=== PATIENT | male | born 1995 | race Caucasian/White ===

== ENCOUNTER 2018-02-25 22:29 | Inpatient (IN) | payer SELFPAY ==
[~2018-02-25] VITALS: Ht 175.3 cm; Wt 69.9 kg
[2018-02-25] MEDS ORDERED: NS IV 1000 ML 1,000 ML IV ONE (22:56)
[2018-02-25 23:15] LABS: BASOPHILS % (AUTO) 0 % (0-10); EOSINOPHILS # (AUTO) 0.1 10^3/uL (0.0-0.3); EOSINOPHILS % (AUTO) 1 % (0-10); HEMATOCRIT 42 % (40-54); HEMOGLOBIN 15.3 G/DL (13.3-17.7); LYMPHOCYTES # (AUTO) 1.1 X 10^3 (1.0-4.0); LYMPHOCYTES % (AUTO) 15 % (12-44); MEAN CORPUSCULAR HEMOGLOBIN 32 PG (25-34); MEAN CORPUSCULAR HGB CONC 37 G/DL (32-36); MEAN CORPUSCULAR VOLUME 87 FL (80-99); MEAN PLATELET VOLUME 11.1 FL (7.4-10.4); MONOCYTES # (AUTO) 0.4 X 10^3 (0.0-1.0); MONOCYTES % (AUTO) 6 % (0-12); NEUTROPHILS # (AUTO) 5.2 X 10^3 (1.8-7.8); NEUTROPHILS % (AUTO) 77 % (42-75); PLATELET COUNT 140 10^3/uL (130-400); RED BLOOD COUNT 4.81 10^6/uL (4.35-5.85); RED CELL DISTRIBUTION WIDTH 13.3 % (10.0-14.5); WHITE BLOOD COUNT 6.8 10^3/uL (4.3-11.0)
[2018-02-25] MEDS ORDERED: PIPERACILLIN SODIUM/TAZOBACTAM 4.5 GM in NS (IVPB) 100 ML IV ONE (23:15)
[2018-02-25] MEDS ORDERED: VANCOMYCIN INJECTION 1,000 MG in NS (IVPB) 250 ML IV ONE (23:15)
[2018-02-25 23:31] LABS: BUN/CREATININE RATIO 18; CALCIUM 9.4 MG/DL (8.5-10.1); CARBON DIOXIDE 25 MMOL/L (21-32); CHLORIDE 102 MMOL/L (98-107); CREATININE SERUM 0.95 MG/DL (0.60-1.30); GFR ESTIMATED > 60; GLUCOSE 89 MG/DL (70-105); POTASSIUM 3.4 MMOL/L (3.6-5.0); SODIUM 136 MMOL/L (135-145)
[2018-02-26] VITALS (7 sets, daily range): BP systolic 94–128; BP diastolic 56–76
--- NOTE | 2018-02-26 00:04 | ED General ---
General Chief Complaint: Skin/Wound Problems Stated Complaint: L HAND MIDDLE FINGER POSS INFECT/HEADACHE/CHILLS Nursing Triage Note: PT AMB TO ROOM #7 W/O DIFFICULTY. A&OX4. CO HEADAHCE AND CHILLS. PT REPORTS HE SMASHED HIS FINGER AT WORK ON 02/18/18 INBETWEEN A 50LB BAG OF POTATOES AND A PIECE OF METAL. PT REPORTS SINCE 02/23/18 LT MIDDLE FINGER HAS TURNED PALE IN COLOR AND HAS BEEN DRAINING "WHITE/GREEN PUS OUT OF MY NAIL BED." PT REPORTS AFTER WORK ON THIS DAY HE BEGAN TO HAVE CHILLS,LORENZ, AND BODY ACHES. PT NOTED TO BE FEBRILE. PT REPORTS DULL,HEAVY PAIN TO LT MIDDLE FINGER. Nursing Sepsis Screen: Possible Sepsis Risk Source of Information: Patient Exam Limitations: No Limitations History of Present Illness Date Seen by Provider: Feb 25, 2018 Time Seen by Provider: 22:32 Initial Comments This 22-year-old gentleman presents to the emergency room with complaints of pain in the distal left middle finger. He smashed it between a 50 pound bag of potatoes and a metal object. About 2 days ago he developed a purulent accumulation underneath the nailbed. He had some drainage of purulent foul- smelling material from the nail edge. Today he developed fever, headache, chills, and myalgia. Allergies and Home Medications Allergies Coded Allergies: ketorolac (Verified Allergy, Mild, 02/26/18) Causes itching. vancomycin (Verified Allergy, Mild, 02/26/18) Itching Patient Home Medication List Home Medication List Reviewed: Yes Review of Systems Review of Systems Constitutional: see HPI EENTM: no symptoms reported Respiratory: no symptoms reported Cardiovascular: no symptoms reported Gastrointestinal: no symptoms reported Genitourinary: no symptoms reported Musculoskeletal: see HPI Skin: see HPI Psychiatric/Neurological: See HPI Hematologic/Lymphatic: No Symptoms Reported Immunological/Allergic: no symptoms reported Past Tfrocla-Nbdjkl-Tsxoxy Hx Patient Social History Alcohol Use: Rarely Uses Recreational Drug Use: No Smoking Status: Current Everyday Smoker Type Used: Cigarettes 2nd Hand Smoke Exposure: Yes Recent Foreign Travel: No Contact w/Someone Who Travel: No Recent Infectious Disease Expo: No Recent Hopitalizations: No Physical Abuse: No Sexual Abuse: No Seasonal Allergies Seasonal Allergies: Yes Past Medical History Surgeries: Yes Orthopedic Respiratory: No Cardiac: No Neurological: No Genitourinary: No Gastrointestinal: No Musculoskeletal: No Endocrine: No HEENT: No Cancer: No Psychosocial: No Integumentary: No Blood Disorders: No Physical Exam-Suspected Sepsis Physical Exam Vital Signs Vital Signs - First Documented 02/25/18 22:51 Temp 100.9 Pulse 103 Resp 16 B/P (MAP) 116/92 (100) Pulse Ox 98 O2 Delivery Room Air Capillary Refill : Less Than 3 Seconds Blood Pressure Mean: 100 Height, Weight, BMI Height: 5'9.00" Weight: 145lbs. oz. [id number]; BMI Method:Stated General Appearance: No Apparent Distress, WD/WN, Other (mildly ill appearing) HEENT: PERRL/EOMI, Normal ENT Inspection Neck: Normal Inspection Respiratory: Lungs Clear, Normal Breath Sounds, No Accessory Muscle Use, No Respiratory Distress Cardiovascular: No Edema, No Murmur, Tachycardia (regular) Gastrointestinal: Normal Bowel Sounds, Non Tender, Soft Extremity: Other (the third finger on the left hand is swollen about the distal phalanx. There is purulent material accumulated beneath the nail bed giving it a pale appearance. Capillary refill is intact. He retains most of the range of motion in that finger. The distal phalanx is very tender.) Neurologic/Psychiatric: Alert, Oriented x3, No Motor/Sensory Deficits, Normal Mood/Affect, rib matcher and fitter II-XII Norm as Tested Skin: normal color, warm/dry, other (see extremity exam) Focused Exam Lactate Level 02/25/18 23:00: Lactic Acid Level 0.65 Lactic Acid Level Progress/Results/Core Measures Suspected Sepsis Recent Fever Within 48 Hours: Yes Infection Criteria Present: Suspected New Infection New/Unexplained Altered Menta: No Sepsis Screen: Possible Sepsis Risk SIRS Temperature:100.9 Pulse: 103 Respiratory Rate: 16 Laboratory Tests 02/25/18 23:00: White Blood Count 6.8 02/26/18 04:10: White Blood Count 7.1 Blood Pressure 116 /92 Mean: 100 02/25/18 23:00: Lactic Acid Level 0.65 Laboratory Tests 02/25/18 23:00: Creatinine 0.95, Platelet Count 140 02/26/18 04:10: Creatinine 0.89, Platelet Count 119L Results/Orders Lab Results Laboratory Tests Test 02/25/18 23:00 02/26/18 04:10 Range/Units White Blood Count 6.8 7.1 4.3-11.0 10^3/uL Red Blood Count 4.81 4.54 4.35-5.85 10^6/uL Hemoglobin 15.3 14.2 13.3-17.7 G/DL Hematocrit 42 40 40-54 % Mean Corpuscular Volume 87 89 80-99 FL Mean Corpuscular Hemoglobin 32 31 25-34 PG Mean Corpuscular Hemoglobin Concent 37 H 35 32-36 G/DL Red Cell Distribution Width 13.3 13.4 10.0-14.5 % Platelet Count 140 119 L 130-400 10^3/uL Mean Platelet Volume 11.1 H 11.3 H 7.4-10.4 FL Neutrophils (%) (Auto) 77 H 83 H 42-75 % Lymphocytes (%) (Auto) 15 9 L 12-44 % Monocytes (%) (Auto) 6 8 0-12 % Eosinophils (%) (Auto) 1 1 0-10 % Basophils (%) (Auto) 0 0 0-10 % Neutrophils # (Auto) 5.2 5.9 1.8-7.8 X 10^3 Lymphocytes # (Auto) 1.1 0.6 L 1.0-4.0 X 10^3 Monocytes # (Auto) 0.4 0.5 0.0-1.0 X 10^3 Eosinophils # (Auto) 0.1 0.1 0.0-0.3 10^3/uL Basophils # (Auto) 0.0 0.0 0.0-0.1 10^3/uL Sodium Level 136 139 135-145 MMOL/L Potassium Level 3.4 L 3.6 3.6-5.0 MMOL/L Chloride Level 102 108 H 98-107 MMOL/L Carbon Dioxide Level 25 22 21-32 MMOL/L Anion Gap 9 9 5-14 MMOL/L Blood Urea Nitrogen 17 13 7-18 MG/DL Creatinine 0.95 0.89 0.60-1.30 MG/DL Estimat Glomerular Filtration Rate > 60 > 60 BUN/Creatinine Ratio 18 15 Glucose Level 89 87 70-105 MG/DL Lactic Acid Level 0.65 0.50-2.00 MMOL/L Calcium Level 9.4 8.8 8.5-10.1 MG/DL C-Reactive Protein High Sensitivity 0.18 0.00-0.50 MG/DL My Orders Orders - JAMAAL ODNG MD Basic Metabolic Panel (02/25/18 22:32) Cbc With Automated Diff (02/25/18 22:32) Hs C Reactive Protein (02/25/18 22:32) Saline Lock/Iv-Start (02/25/18 22:32) Blood Culture (02/25/18 22:56) Lactic Acid Analyzer (02/25/18 22:56) Wound Culture (02/25/18 22:56) Saline Lock/Iv-Start (02/25/18 22:56) Ns Iv 1000 Ml (Sodium Chloride 0.9%) (02/25/18 22:56) Finger(S) (02/25/18 22:56) Piperacillin Sodium/Tazobactam (Zosyn Vi (02/25/18 23:15) Vancomycin Injection (Vancomycin Injecti (02/25/18 23:15) Ketorolac Injection (Toradol Injection) (02/26/18 00:15) Ondansetron Injection (Zofran Injectio (02/26/18 00:15) Diphenhydramine Injection (Benadryl Inje (02/26/18 01:00) Clindamycin 900 Mg/50 Ml Ivpb (Cleocin P (02/26/18 01:00) Medications Given in ED Current Medications Medications Dose Ordered Sig/Elaina Route Start Time Stop Time Status Last Admin Dose Admin Clindamycin Phosphate/Dextrose 50 ml @ 100 mls/hr ONCE ONCE IV 02/26/18 01:00 02/26/18 01:29 DC 02/26/18 01:19 100 MLS/HR Diphenhydramine HCl 25 mg ONCE ONCE IVP 02/26/18 01:00 02/26/18 01:01 DC 02/26/18 01:03 25 MG Ketorolac Tromethamine 15 mg ONCE ONCE IVP 02/26/18 00:15 02/26/18 00:17 DC 02/26/18 00:27 15 MG Ondansetron HCl 4 mg ONCE ONCE IVP 02/26/18 00:15 02/26/18 00:17 DC 02/26/18 00:28 4 MG Piperacillin Sod/ Tazobactam Sod 4.5 gm/Sodium Chloride 100 ml @ 200 mls/hr ONCE ONCE IV 02/25/18 23:15 02/25/18 23:44 DC 02/25/18 23:43 200 MLS/HR Sodium Chloride 1,000 ml @ 0 mls/hr Q0M ONCE IV 02/25/18 22:56 02/25/18 22:58 DC 02/25/18 23:05 0 MLS/HR Vancomycin HCl 1000 mg/Sodium Chloride 250 ml @ 250 mls/hr ONCE ONCE IV 02/25/18 23:15 02/26/18 00:14 DC 02/26/18 00:15 250 MLS/HR Vital Signs/I&O 02/25/18 02/26/18 02/26/18 02/26/18 22:51 01:50 01:50 01:50 Temp 100.9 98.5 102.0 98.5 Pulse 103 98 101 98 Resp 16 17 16 17 B/P (MAP) 116/92 (100) 108/59 119/57 (77) 108/59 Pulse Ox 98 99 97 99 O2 Delivery Room Air Room Air Room Air Room Air 02/26/18 02/26/18 02/26/18 02/26/18 02:05 02:40 02:40 03:04 Temp 102.0 100.2 100.2 Pulse Ox 97 O2 Delivery Room Air 02/26/18 04:43 Temp 98.3 Pulse 77 Resp 16 B/P (MAP) 110/60 (77) Pulse Ox 97 O2 Delivery Room Air Capillary Refill : Less Than 3 Seconds Blood Pressure Mean: 100 Progress Note #1: Progress Note Septic workup was pursued. A 16-gauge hypodermic needle was used to drill through the nail and alleviate some of the purulent accumulation. A small amount of drainage was expressed through the hole. This was cultured. I consulted with Dr. Valladares to discuss appropriate management of drainage of the purulent material. We discussed a digital block with incision of the nail lengthwise versus drilling additional holes. He advised drilling additional holes for the time being and monitoring progression. Vancomycin and Zosyn were ordered for initial therapy. Progress Note #2: Progress Note Patient received a liter of IV fluid. Zosyn was infused. Vancomycin will be administered as well. Progress Note #3: Time: 01:16 Progress Note Patient developed intense itching after receiving Toradol and while vancomycin infusion was in progress. Vancomycin was stopped after approximately 400 mg were infused, and Benadryl was given. Itching immediately stopped. Toradol and vancomycin were added to his allergy list. Clindamycin was ordered as a substitute. Diagnostic Imaging Diagonstic Imaging: Xray Plain Films/CT/US/NM/MRI: hand Comments Finger x-rays viewed by me. Report not yet available. No acute bony abnormalities were appreciated. Departure Communication (Admissions) Time/Spoke to Admitting Phy: 23:55 Dr. Ladd Impression Primary Impression: Sepsis Qualified Codes: A41.9 - Sepsis, unspecified organism Additional Impressions: Subungual abscess Crush injury to finger Qualified Codes: S67.10XA - Crushing injury of unspecified finger(s), initial encounter Drug reaction Qualified Codes: T50.905A - Adverse effect of unspecified drugs, medicaments and biological substances, initial encounter Disposition: ADMITTED INPATIENT Condition: Improved Admissions Decision to Admit Reason: Admit from ER (General) Decision to Admit/Date: Feb 26, 2018 Time/Decision to Admit Time: 22:45 Departure-Patient Inst. Referrals: [facility] (PCP/Family) Primary Care Physician JAMAAL DONG MD Feb 26, 2018 00:04
[2018-02-26] MEDS ORDERED: ONDANSETRON 4 MG/2 ML (SDV) Z0FRAN IVP ONE (00:15)
[2018-02-26] MEDS ORDERED: KETOROLAC 30 MG/ML VIAL IVP ONE (00:15)
[2018-02-26] MEDS ORDERED: CLINDAMYCIN 900 MG/50 ML IVPB 50 ML IV ONE (01:00)
[2018-02-26] MEDS ORDERED: diphenhydrAMINE 50 MG/ML INJ (BENADRYL) IVP ONE (01:00)
[2018-02-26] MEDS ORDERED: ACETAMINOPHEN 500 MG TAB (TYLENOL) ONE (01:55)
[2018-02-26] MEDS ORDERED: NS IV 1000 ML 1,000 ML ONE (01:57)
[2018-02-26] MEDS ORDERED: CATHETER FLUSH 10 ML SYR IV PRN (03:45)
[2018-02-26] MEDS ORDERED: ACETAMINOPHEN 500 MG TAB (TYLENOL) PO PRN (03:45)
[2018-02-26] MEDS ORDERED: IBUPROFEN 600 MG (MOTRIN) TAB PO PRN (03:45)
[2018-02-26] MEDS: NS IV 1000 ML 1,000 ML IV SCH ×3 (04:07→23:38)
[2018-02-26] MEDS: CATHETER FLUSH 10 ML SYR IV SCH ×3 (04:42→22:02)
[2018-02-26 04:53] LABS: BASOPHILS % (AUTO) 0 % (0-10); EOSINOPHILS # (AUTO) 0.1 10^3/uL (0.0-0.3); EOSINOPHILS % (AUTO) 1 % (0-10); HEMATOCRIT 40 % (40-54); HEMOGLOBIN 14.2 G/DL (13.3-17.7); LYMPHOCYTES # (AUTO) 0.6 X 10^3 (1.0-4.0); LYMPHOCYTES % (AUTO) 9 % (12-44); MEAN CORPUSCULAR HEMOGLOBIN 31 PG (25-34); MEAN CORPUSCULAR HGB CONC 35 G/DL (32-36); MEAN CORPUSCULAR VOLUME 89 FL (80-99); MEAN PLATELET VOLUME 11.3 FL (7.4-10.4); MONOCYTES # (AUTO) 0.5 X 10^3 (0.0-1.0); MONOCYTES % (AUTO) 8 % (0-12); NEUTROPHILS # (AUTO) 5.9 X 10^3 (1.8-7.8); NEUTROPHILS % (AUTO) 83 % (42-75); PLATELET COUNT 119 10^3/uL (130-400); RED BLOOD COUNT 4.54 10^6/uL (4.35-5.85); RED CELL DISTRIBUTION WIDTH 13.4 % (10.0-14.5); WHITE BLOOD COUNT 7.1 10^3/uL (4.3-11.0)
[2018-02-26 05:06] LABS: BUN/CREATININE RATIO 15; CALCIUM 8.8 MG/DL (8.5-10.1); CARBON DIOXIDE 22 MMOL/L (21-32); CHLORIDE 108 MMOL/L (98-107); CREATININE SERUM 0.89 MG/DL (0.60-1.30); GFR ESTIMATED > 60; GLUCOSE 87 MG/DL (70-105); POTASSIUM 3.6 MMOL/L (3.6-5.0); SODIUM 139 MMOL/L (135-145)
[2018-02-26] MEDS: PIPERACILLIN/TAZO 4.5 GM/NS 100 ML IV SCH ×6 (06:05→22:02)
--- NOTE | 2018-02-26 06:45 | Diagnostic Imaging Report ---
INDICATION: Left middle finger injury 3 views of the left middle finger show no fracture, dislocation or other acute abnormalities. IMPRESSION: Negative left middle finger. Dictated by: Dictated on workstation # [id number]
--- NOTE | 2018-02-26 08:51 | History & Physicial ([facility]) ---
HPI History of Present Illness: 22 year old male who presented to ED last night with report that on 02/18 he smashed his left middle finger between heavy bag of potatoes and metal object. Since 02/23 his nail bed of left middle finger has been pale and draining purulent material. Last night before presenting to ED the patient began experiencing headache, body aches, chills, and fever so came to the ED. He had a small hole made and purulent material was expressed. He was noted to have systolic blood pressure in the 90's and was given a fluid bolus. Labs were unremarkable. A few additional holes were placed for further relief of pressure and drainage of subuncal abscess by ED physician. The patient was started on Zosyn and Vanc; the vanc was given with toradol and the patient experienced significant itching. The vanc was stopped and both it and toradol were listed as allergies. The patient had a temp of 102 overnight, which has not returned. At the time of exam the patient reports that he is feeling well, has minimal pain. Clinic records were reviewed, and no evidence of the patient was found; he reported that he went once as a child while in foster care, but hasn't seen a doctor in years because he doesn't like to go to doctors. Source: patient, RN/MD, RN notes reviewed Exam Limitations: no limitations Date seen by provider: Feb 26, 2018 Time Seen by Provider: 15:10 Attending Physician Margoth Ladd DO PCP NO PCP Consult Date of Admission Feb 26, 2018 at 01:16 Home Medications Home Medications Reviewed patient Home Medication Reconciliation performed by pharmacy medication reconciliations fire range technician and/or nursing. Patients Allergies have been reviewed. Allergies Coded Allergies: ketorolac (Verified Allergy, Mild, 02/26/18) Causes itching. vancomycin (Verified Allergy, Mild, 02/26/18) Itching TMK-Hmowkm-Mrzevn Hx Patient Social History Marrital Status: cohabiting, domestic partnership Number of Children: 0 Number of living children: 0 Living Status: lives with significant other Employed/Student: employed Alcohol Use: Denies Use Recreational Drug Use: No Smoking Status: Current Everyday Smoker Type Used: Cigarettes 2nd Hand Smoke Exposure: Yes Recent Foreign Travel: No Contact w/other who traveled: No Recent Hopitalizations: No Recent Infectious Disease Expo: No Physical Abuse Screen: No Sexual Abuse: No Immunizations Up To Date Tetanus Booster (TDap): More than 5yrs Past Medical History Tobacco Abuse Past Surgical Hx -left elbow surgery ~age 7 -right hand tendon repair ~age 20 Family Medical History Significant Family History: Psychiatric Problems Review of Systems ([facility]) Constitutional: see HPI, chills, fever EENTM: no symptoms reported Respiratory: no symptoms reported Cardiovascular: no symptoms reported Gastrointestinal: no symptoms reported Genitourinary: no symptoms reported Musculoskeletal: no symptoms reported Skin: see HPI Psychiatric/Neurological: No Symptoms Reported Reviewed Test Results Reviewed Test Results Lab Microbiology 02/25/18 Blood Culture - Preliminary, Resulted No growth 02/25/18 Blood Culture - Preliminary, Resulted No growth 02/25/18 Gram Stain - Final, Resulted 02/25/18 Wound Culture - Preliminary, Resulted Sent To On License Of [facility] See Comments Laboratory Tests Test 02/25/18 23:00 02/26/18 04:10 Range/Units White Blood Count 6.8 7.1 4.3-11.0 10^3/uL Red Blood Count 4.81 4.54 4.35-5.85 10^6/uL Hemoglobin 15.3 14.2 13.3-17.7 G/DL Hematocrit 42 40 40-54 % Mean Corpuscular Volume 87 89 80-99 FL Mean Corpuscular Hemoglobin 32 31 25-34 PG Mean Corpuscular Hemoglobin Concent 37 H 35 32-36 G/DL Red Cell Distribution Width 13.3 13.4 10.0-14.5 % Platelet Count 140 119 L 130-400 10^3/uL Mean Platelet Volume 11.1 H 11.3 H 7.4-10.4 FL Neutrophils (%) (Auto) 77 H 83 H 42-75 % Lymphocytes (%) (Auto) 15 9 L 12-44 % Monocytes (%) (Auto) 6 8 0-12 % Eosinophils (%) (Auto) 1 1 0-10 % Basophils (%) (Auto) 0 0 0-10 % Neutrophils # (Auto) 5.2 5.9 1.8-7.8 X 10^3 Lymphocytes # (Auto) 1.1 0.6 L 1.0-4.0 X 10^3 Monocytes # (Auto) 0.4 0.5 0.0-1.0 X 10^3 Eosinophils # (Auto) 0.1 0.1 0.0-0.3 10^3/uL Basophils # (Auto) 0.0 0.0 0.0-0.1 10^3/uL Sodium Level 136 139 135-145 MMOL/L Potassium Level 3.4 L 3.6 3.6-5.0 MMOL/L Chloride Level 102 108 H 98-107 MMOL/L Carbon Dioxide Level 25 22 21-32 MMOL/L Anion Gap 9 9 5-14 MMOL/L Blood Urea Nitrogen 17 13 7-18 MG/DL Creatinine 0.95 0.89 0.60-1.30 MG/DL Estimat Glomerular Filtration Rate > 60 > 60 BUN/Creatinine Ratio 18 15 Glucose Level 89 87 70-105 MG/DL Lactic Acid Level 0.65 0.50-2.00 MMOL/L Calcium Level 9.4 8.8 8.5-10.1 MG/DL C-Reactive Protein High Sensitivity 0.18 0.00-0.50 MG/DL Radiology Left hand series - no acute process Physical Exam-([facility]) Physical Exam Vital Signs VS - Last 72 Hours, by Label 02/25/18 02/26/18 02/26/18 02/26/18 22:51 01:50 01:50 01:50 Temp 100.9 98.5 102.0 98.5 Pulse 103 98 101 98 Resp 16 17 16 17 B/P (MAP) 116/92 (100) 108/59 119/57 (77) 108/59 Pulse Ox 98 99 97 99 O2 Delivery Room Air Room Air Room Air Room Air 02/26/18 02/26/18 02/26/18 02/26/18 02:05 02:40 02:40 03:04 Temp 102.0 100.2 100.2 Pulse Ox 97 O2 Delivery Room Air 02/26/18 02/26/18 02/26/18 02/26/18 04:43 08:00 12:00 16:00 Temp 98.3 99.0 100.2 100.5 Pulse 77 77 71 71 Resp 16 20 20 18 B/P (MAP) 110/60 (77) 94/56 (69) 116/72 (87) 98/61 (73) Pulse Ox 97 98 98 97 O2 Delivery Room Air Room Air Room Air Room Air 02/26/18 02/26/18 02/26/18 16:36 17:06 19:15 Temp 100.5 98.4 98.8 Pulse 64 Resp 20 B/P (MAP) 115/59 (77) Pulse Ox 99 O2 Delivery Room Air Capillary Refill : Less Than 3 Seconds General Appearance: WD/WN, no apparent distress Eyes: Bilateral Eye Normal Inspection, Bilateral Eye EOMI HEENT: normal ENT inspection; No scleral icterus (R), No scleral icterus (L), No photophobia Neck: non-tender, full range of motion, supple, normal inspection Respiratory: chest non-tender, lungs clear, normal breath sounds, no respiratory distress Cardiovascular: normal peripheral pulses, regular rate, rhythm, no edema, no gallop, no JVD, no murmur Peripheral Pulses: 2+ Dorsalis Pedis (R), 2+ Left Dors-Pedis (L), 2+ Radial Pulses (R), 2+ Radial Pulses (L) Gastrointestinal: normal bowel sounds, non tender, soft, no organomegaly, no pulsatile mass Rectal: deferred Back: normal inspection, no CVA tenderness, no vertebral tenderness Extremities: normal range of motion, non-tender, no pedal edema, no calf tenderness, normal capillary refill, other (left middle fingernail with multiple holes, no active drainage) Neurologic/Psychiatric: building manager II-XII nml as tested, no motor/sensory deficits, alert, normal mood/affect, oriented x 3 Skin: normal color, warm/dry Assessment/Plan Assessment/Plan Admission Dx Subuncal Abscess Fever Tobacco Abuse Admission Status: Inpatient Order (span 2 midnights) Reason for Inpatient Admission: IV abx Assessment & Plan Subuncal Abscess Fever Tobacco Abuse -pt with febrile episode at ~0200 to 102 -continue IV abx -pt reports that left middle finger drained large amount of material overnight, but is no longer draining and not very painful -will recheck labs in AM -if remains afebrile until AM, will discharge on oral abx -suspect that low BP reading pt had in ED is not necessarily abnormal for patient, as he is slender and very fit -update tetanus before discharge as pt did smash finger against metal object Anticipate that patient will be ready for discharge in the morning on oral abx. Clinical Quality Measures DVT/VTE Risk/Contraindication: Risk Factor Score Per Nursin RFS Level Per Nursing on Admit: 4+=Very High Copy Copies To 1: [facility]/MARGOTH WHEELER DO Feb 26, 2018 08:51
[2018-02-26] MEDS: CLINDAMYCIN 900 MG/50 ML IVPB 50 ML IV SCH ×3 (11:16→23:50)
[2018-02-26] MEDS ORDERED: HYDROcodone/APAP 5 MG/325 MG (LORTAB) TAB PO PRN (17:00)
[2018-02-27 03:17] VITALS: BP 101/63
[2018-02-27] MEDS: CATHETER FLUSH 10 ML SYR IV SCH (05:13)
[2018-02-27] MEDS: PIPERACILLIN/TAZO 4.5 GM/NS 100 ML IV SCH ×2 (05:13)
[2018-02-27 06:24] LABS: BASOPHILS % (AUTO) 0 % (0-10); EOSINOPHILS # (AUTO) 0.2 10^3/uL (0.0-0.3); EOSINOPHILS % (AUTO) 5 % (0-10); HEMATOCRIT 40 % (40-54); HEMOGLOBIN 13.9 G/DL (13.3-17.7); LYMPHOCYTES # (AUTO) 1.6 X 10^3 (1.0-4.0); LYMPHOCYTES % (AUTO) 51 % (12-44); MEAN CORPUSCULAR HEMOGLOBIN 32 PG (25-34); MEAN CORPUSCULAR HGB CONC 35 G/DL (32-36); MEAN CORPUSCULAR VOLUME 91 FL (80-99); MEAN PLATELET VOLUME 11.9 FL (7.4-10.4); MONOCYTES # (AUTO) 0.7 X 10^3 (0.0-1.0); MONOCYTES % (AUTO) 22 % (0-12); NEUTROPHILS # (AUTO) 0.7 X 10^3 (1.8-7.8); NEUTROPHILS % (AUTO) 23 % (42-75); PLATELET COUNT 118 10^3/uL (130-400); RED BLOOD COUNT 4.39 10^6/uL (4.35-5.85); RED CELL DISTRIBUTION WIDTH 13.5 % (10.0-14.5); WHITE BLOOD COUNT 3.2 10^3/uL (4.3-11.0)
[2018-02-27 08:00] VITALS: BP 93/59
[2018-02-27] MEDS: NS IV 1000 ML 1,000 ML IV SCH (09:01)
[2018-02-27] MEDS: CLINDAMYCIN 900 MG/50 ML IVPB 50 ML IV SCH (09:04)
[2018-02-27 12:00] VITALS: BP 115/54
[2018-02-27] MEDS ORDERED: TETANUS,DIPTH,PERTUSS P/F (BOOSTRIX) 0.5 ML VIAL IM ONE (12:00)
--- NOTE | 2018-02-27 13:51 | Discharge Summary ---
Diagnosis/Chief Complaint Date of Admission Feb 26, 2018 at 01:16 Date of Discharge 02/27/18 Admission Diagnosis Admission Diagnosis Subuncal Abscess Fever Tobacco Abuse Discharge Diagnosis Subuncal Abscess Fever Tobacco Abuse -pt with febrile episode at ~0200 to 102 -continue IV abx -pt reports that left middle finger drained large amount of material overnight, but is no longer draining and not very painful -will recheck labs in AM -if remains afebrile until AM, will discharge on oral abx -suspect that low BP reading pt had in ED is not necessarily abnormal for patient, as he is slender and very fit -update tetanus before discharge as pt did smash finger against metal object 02/27 -pt with Tmax 100.5 yesterday mid-day, no fevers since -tolerating diet, no nausea or vomiting -pain well controlled -BP at baseline for patient -left middle finger continues to have intermittent draining, but much less than previous -pt feels ready for discharge and is stable from clinical standpoint -will DC with oral clindamycin, augmentin x5 days for a total of 7 days abx; # 12 tabs Vaughn 5/325 PRN severe pain -Tdap prior to discharge -follow up in clinic to establish care as patient has not been seen by a physician since he was younger; no records of him as a [facility] patient since 2009 Chief Complaint/HPI Chief Complaint/HPI 22 year old male who presented to ED last night with report that on 02/18 he smashed his left middle finger between heavy bag of potatoes and metal object. Since 02/23 his nail bed of left middle finger has been pale and draining purulent material. Last night before presenting to ED the patient began experiencing headache, body aches, chills, and fever so came to the ED. He had a small hole made and purulent material was expressed. He was noted to have systolic blood pressure in the 90's and was given a fluid bolus. Labs were unremarkable. A few additional holes were placed for further relief of pressure and drainage of subuncal abscess by ED physician. The patient was started on Zosyn and Vanc; the vanc was given with toradol and the patient experienced significant itching. The vanc was stopped and both it and toradol were listed as allergies. The patient had a temp of 102 overnight, which has not returned. At the time of exam the patient reports that he is feeling well, has minimal pain. Clinic records were reviewed, and no evidence of the patient was found; he reported that he went once as a child while in foster care, but hasn't seen a doctor in years because he doesn't like to go to doctors. Discharge Summary-Simple/Stand Consultations Discharge Physical Examination Allergies: Coded Allergies: ketorolac (Verified Allergy, Mild, 02/26/18) Causes itching. vancomycin (Verified Allergy, Mild, 02/26/18) Itching Vitals & I&Os Vital Sign - Last 12Hours Date Time Temp Pulse Resp B/P (MAP) Pulse Ox O2 Delivery O2 Flow Rate FiO2 02/27/18 08:00 97.8 54 14 93/59 (70) 98 Room Air Intake and Output 02/27/18 00:00 Intake Total 2000 ml Output Total 1025 ml Balance 975 ml General Appearance: Alert, Oriented X3, Cooperative, No Acute Distress HEENT: Atraumatic, EOMI, Mucous Memb Moist/[place] Respiratory: Clear to Auscultation, Normal Air Movement Cardiovascular: Regular Rate, Normal S1, Normal S2 Abdominal: Normal Bowel Sounds, Soft, No Tenderness Extremities: No Clubbing, No Cyanosis, No Edema, Normal Pulses, Other (left middle finger with multiple holes placed per ED in nail for drainage of abscess , no active drainage at the time of exam) Skin: No Rashes, No Breakdown Neuro: Normal Gait, Normal Speech, Normal Tone, Sensation Intact, Cranial Nerves 3-12 NL Psych/Mental Status: Mental Status NL, Mood NL Hospital Course See final discharge diagnosis. Labs Microbiology 02/25/18 Blood Culture - Preliminary, Resulted Staph, Coag Neg (ELECTRICIAN) See Comments 02/25/18 Blood Culture - Preliminary, Resulted No growth 02/25/18 Gram Stain - Final, Resulted 02/25/18 Wound Culture - Preliminary, Resulted Sent To [facility] See Comments Laboratory Tests Test 02/25/18 23:00 02/26/18 04:10 02/27/18 05:40 Range/Units White Blood Count 6.8 7.1 3.2 L 4.3-11.0 10^3/uL Red Blood Count 4.81 4.54 4.39 4.35-5.85 10^6/uL Hemoglobin 15.3 14.2 13.9 13.3-17.7 G/DL Hematocrit 42 40 40 40-54 % Mean Corpuscular Volume 87 89 91 80-99 FL Mean Corpuscular Hemoglobin 32 31 32 25-34 PG Mean Corpuscular Hemoglobin Concent 37 H 35 35 32-36 G/DL Red Cell Distribution Width 13.3 13.4 13.5 10.0-14.5 % Platelet Count 140 119 L 118 L 130-400 10^3/uL Mean Platelet Volume 11.1 H 11.3 H 11.9 H 7.4-10.4 FL Neutrophils (%) (Auto) 77 H 83 H 23 L 42-75 % Lymphocytes (%) (Auto) 15 9 L 51 H 12-44 % Monocytes (%) (Auto) 6 8 22 H 0-12 % Eosinophils (%) (Auto) 1 1 5 0-10 % Basophils (%) (Auto) 0 0 0 0-10 % Neutrophils # (Auto) 5.2 5.9 0.7 L 1.8-7.8 X 10^3 Lymphocytes # (Auto) 1.1 0.6 L 1.6 1.0-4.0 X 10^3 Monocytes # (Auto) 0.4 0.5 0.7 0.0-1.0 X 10^3 Eosinophils # (Auto) 0.1 0.1 0.2 0.0-0.3 10^3/uL Basophils # (Auto) 0.0 0.0 0.0 0.0-0.1 10^3/uL Sodium Level 136 139 135-145 MMOL/L Potassium Level 3.4 L 3.6 3.6-5.0 MMOL/L Chloride Level 102 108 H 98-107 MMOL/L Carbon Dioxide Level 25 22 21-32 MMOL/L Anion Gap 9 9 5-14 MMOL/L Blood Urea Nitrogen 17 13 7-18 MG/DL Creatinine 0.95 0.89 0.60-1.30 MG/DL Estimat Glomerular Filtration Rate > 60 > 60 BUN/Creatinine Ratio 18 15 Glucose Level 89 87 70-105 MG/DL Lactic Acid Level 0.65 0.50-2.00 MMOL/L Calcium Level 9.4 8.8 8.5-10.1 MG/DL C-Reactive Protein High Sensitivity 0.18 1.29 H 0.00-0.50 MG/DL Radiology Reviewed Left hand series - no acute process Discharge Condition at discharge stable Instructions to patient/family Please see electronic discharge instructions given to patient. Discharge Medications Reviewed and agree with Discharge Medication list on patient's Discharge Instruction sheet Clinical Quality Measures DVT/VTE Risk/Contraindication: Risk Factor Score Per Nursin RFS Level Per Nursing on Admit: 4+=Very High Copy Copies To 1: [facility]/KOKO WHEELER DO Feb 27, 2018 13:51
[2018-02-27] MEDS ORDERED: CLIN300C11 PO (13:54)
[2018-02-27] MEDS ORDERED: AMOX-358 PO (13:54)
[2018-02-27] MEDS ORDERED: ACHD5005 PO (13:54)
--- NOTE | 2018-02-27 13:58 | Discharge Instructions ---
Discharge [facility] Discharge Medications New, Converted or Re-Newed RX: Other (antibiotics transmitted to pharmacy, hydrocodone rx on pt's chart) New Medications: Amoxicillin/Potassium Clav (Augmentin 875-125 Tablet) 1 Each Tablet 1 EACH PO BID for 5 Days, #10 TAB 0 Refills Clindamycin HCl (Clindamycin HCl) 300 Mg Capsule 300 MG PO TID for 5 Days, #15 CAP 0 Refills Hydrocodone Bit/Acetaminophen (Hydrocodone/Acetaminophen 5/325mg Tablet) 1 Tab Tab 1-2 TAB PO Q6H PRN for PAIN-MODERATE TO SEVERE for 3 Days, #12 TAB Patient Instructions Patient Instructions -keep finger clean and dry -take medications as prescribed -tylenol and ibuprofen to control pain, may use prescribed hydrocodone if severe pain -FINISH ALL ANTIBIOTICS -follow up appt with Jonel Woodward at [facility], Friday03/03/18 at 11:00 Goal/Follow Up Appt: Jonel Woodward, -- 03/03/18 at 11:00 Return to The Hospital For: chest pain or pressure, shortness of breath, fever >101 that does not come down with tylenol or ibuprofen or lasts more than 24 hours, severe pain uncontrolled by prescribed medication, nausea or vomiting that prevents you from keeping down clear liquid or medications, if directed by operational risk manager provider, or with any other emergent complaints or concerns Activity & Diet Discharge Diet: No Restrictions Activity as Tolerated: Yes Copy Copies To 1: [facility]/KOKO WHEELER DO Feb 27, 2018 13:58
== END 2018-02-27 15:50 | disposition home or self-care (01) | DRG 603 ==
LOC: EDUNIT# 22:29 → ER 22:31 → 4TH 02-26 01:16
PROVIDERS: ADMIT Family Medicine; ATTEND Family Medicine
PROC: 0H9QXZZ Drainage of Finger Nail, External Approach (ICD-10-PCS; principal; 2018-02-26)
DX: L02.511 Cutaneous abscess of right hand (principal); L03.012 Cellulitis of left finger; S67.193A Crushing injury of left middle finger, initial encounter; T36.8X5A Adverse effect of other systemic antibiotics, initial encounter; T39.8X5A Adverse effect of other nonopioid analgesics and antipyretics, not elsewhere classified, initial encounter; Z88.1 Allergy status to other antibiotic agents; Z88.6 Allergy status to analgesic agent; W23.1XXA Caught, crushed, jammed, or pinched between stationary objects, initial encounter
CPT/HCPCS: 36415; 73140; 80048; 83605; 85025; 86141; 87040; 87070; 87205; 96361; 96365; 96367; 96375

== ENCOUNTER 2018-04-14 22:25 | Emergency (ER) | payer SELFPAY ==
[~2018-04-14] VITALS: Ht 175.3 cm; Wt 65.8 kg
[~2018-04-14 22:25] MED LIST: ACHD5005 PO; AMOX-358 PO; CLIN300C11 PO
--- OUTSIDE RECORDS SUMMARY | 2018-04-14 22:30 | XMS REPORT ---
Author Author KOKO JENKINS Organization [facility] Address [address] [place] [address] Care Team Providers Care Auto Winder Name Role Phone KOKO JENKINS Unavailable PROBLEMS Unknown Problems ALLERGIES No Information ENCOUNTERS Encounter Location Date Diagnosis [facility] [address] [facility] [id number] [address] Feb[address] [facility] [address] [facility] [id number] [address] Nov, IMMUNIZATIONS No Known Immunizations SOCIAL HISTORY Never Assessed REASON FOR VISIT Hospital DC/Med list update PLAN OF CARE VITAL SIGNS MEDICATIONS Medication Instructions Dosage Frequency Start Date End Date Duration Status Amoxicillin-Pot Clavulanate 875-125 MG Orally every 12 hrs 1 tablet 12h Feb, Feb, 10 day(s) Active Hydrocodone-Acetaminophen 5-325 MG Orally every 6 hrs 1 tablet as needed 6h Active Clindamycin HCl 300 MG Orally Three times a day 1 capsule 8h Feb, Feb, 10 day(s) Active RESULTS No Results PROCEDURES No Known procedures INSTRUCTIONS MEDICATIONS ADMINISTERED No Known Medications MEDICAL (GENERAL) HISTORY Type Description Date Surgical History No Surgical history information Hospitalization History Subuncal Abscess, fever, Tobacco Abuse-[facility] 02/27/18
[2018-04-14] MEDS ORDERED: ONDANSETRON 4 MG/2 ML (SDV) Z0FRAN IM ONE (23:00)
[2018-04-14] MEDS ORDERED: KETOROLAC 30 MG/ML VIAL IM ONE (23:00)
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
[2018-04-14 23:13] VITALS: BP 138/103
[2018-04-15] MEDS ORDERED: AMOX500C2 PO (00:22)
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
== END 2018-04-15 00:05 | disposition other institution (70) ==
LOC: EDUNIT# 22:25 → ER 22:26
DX: S02.602A Fracture of unspecified part of body of left mandible, initial encounter for closed fracture (principal); F17.210 Nicotine dependence, cigarettes, uncomplicated; Z88.0 Allergy status to penicillin; Y04.8XXA Assault by other bodily force, initial encounter
CPT/HCPCS: 70450; 70486; 72125; 99283

== ENCOUNTER 2018-04-17 07:35 | Emergency (ER) | payer SELFPAY ==
[~2018-04-17] VITALS: Ht 175.3 cm; Wt 65.8 kg
[~2018-04-17 07:35] MED LIST changes: +AMOX500C2 PO
[2018-04-17] MEDS ORDERED: TRAM-42 PO (08:36)
[2018-04-17] MEDS ORDERED: AMOX500T2 PO (08:36)
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
[2018-04-17 08:46] VITALS: BP 142/84
== END 2018-04-17 08:46 | disposition home or self-care (01) ==
LOC: EDUNIT# 07:35 → ER 07:36
DX: S02.609D Fracture of mandible, unspecified, subsequent encounter for fracture with routine healing (principal); F17.210 Nicotine dependence, cigarettes, uncomplicated; Z88.0 Allergy status to penicillin; Y09 Assault by unspecified means
CPT/HCPCS: 99282

== ENCOUNTER 2018-11-10 19:09 | Emergency (ER) | payer SELFPAY ==
[~2018-11-10] VITALS: Ht 175.3 cm; Wt 65.8 kg
[~2018-11-10 19:09] MED LIST changes: +AMOX500T2 PO; +TRAM-42 PO
[2018-11-10 19:22] VITALS: BP 137/97
--- NOTE | 2018-11-10 19:22 | NUR ---
pt reports taking multiple different leftover abx. pt advised against that.
--- NOTE | 2018-11-10 19:40 | NUR ---
pt given specimen cup ua requested.
[2018-11-10] MEDS ORDERED: KETOROLAC 30 MG/ML VIAL IVP ONE (19:45)
[2018-11-10] MEDS ORDERED: PIPERACILLIN/TAZOBACTAM (BULK) 4.5 GM in NS (IVPB) 100 ML IV ONE (19:45)
--- NOTE | 2018-11-10 19:47 | NUR ---
pt declined to give ua, stated he wished to leave et. come back if swelling worsened.
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
[2018-11-10] MEDS ORDERED: CLIN300C11 PO (23:59)
[2018-11-11] MEDS ORDERED: ACHD5005 PO (17:37)
[2018-11-11] MEDS ORDERED: SULF1TAB35 PO (17:37)
== END 2018-11-10 19:48 | disposition left against medical advice (07) ==
LOC: EDUNIT# 19:09 → ER 19:10
DX: R22.0 Localized swelling, mass and lump, head (principal); F10.10 Alcohol abuse, uncomplicated; F17.210 Nicotine dependence, cigarettes, uncomplicated; Z88.1 Allergy status to other antibiotic agents; Z98.890 Other specified postprocedural states
CPT/HCPCS: 99281

== ENCOUNTER 2018-11-10 21:44 | Emergency (ER) | payer SELFPAY ==
[~2018-11-10] VITALS: Ht 175.3 cm; Wt 74.8 kg
--- NOTE | 2018-11-10 22:32 | NUR ---
urine cup given to pt, specimen requested.
[2018-11-10] MEDS ORDERED: KETOROLAC 30 MG/ML VIAL IVP STA (22:35)
[2018-11-10] MEDS ORDERED: CLINDAMYCIN 900 MG/50 ML IVPB 50 ML IV ONE (22:45)
--- NOTE | 2018-11-10 22:47 | ED EENT ---
History of Present Illness General Chief Complaint: Facial Problems Stated Complaint: LIP SWELLING Nursing Triage Note: PT REPORTS LIP SWELLING THAT STARTED 2 DAYS AGO. PT ALSO REPORTS JAW, TEETH, AND GENRAL FACAIL PAIN. UPSET STOMACH. Source: patient History of Present Illness Date Seen by Provider: November 10, 2018 Time Seen by Provider: 22:33 Initial Comments PT RETURNS TO ER VIA POV, AFTER SIGNING OUT AMA EARLIER THIS EVENING. PT STATES HE NOW AGREES TO TESTS AND TREATMENT C/O PAIN, REDNESS AND SWELLING TO RIGHT UPPER LIP FOR 2-3 DAYS, GETTING WORSE AND NOW WHOLE RIGHT CHEEK AND JAW ARE SWOLLEN, RED AND PAINFUL PT HAS BEEN POKING AT, PICKING AND SQUEEZING AN AREA ABOVE RIGHT UPPER LIP PT HAS HAD SUBJECTIVE FEVER AND CHILLS DENIES ANY DENTAL ISSUES PT TOOK AN UNKNOWN "LEFT OVER" ANTIBIOTIC TODAY WITHOUT RELIEF STATES HE HAS NOT TAKEN ANYTHING FOR PAIN AT ANY TIME PT HAS BEEN DRINKING ALCOHOL TONIGHT PT STATES HE HAS HAD "STAPH" INFECTION BEFORE IN HIS HAND AND HAD TO BE HOSPITALIZED FOR IT--WAS 02/2018, AND HAD A TETANUS SHOT AT THAT TIME PCP: "NONE" PER PT, BUT HAS BEEN A PT AT [facility] IN THE PAST Allergies and Home Medications Allergies Coded Allergies: vancomycin (Verified Allergy, Mild, 02/26/18) Itching Patient Home Medication List Home Medication List Reviewed: Yes Review of Systems Review of Systems Constitutional: see HPI, chills, fever Eyes: No Symptoms Reported Ears: No Symptoms Reported Nose: no symptoms reported Mouth: see HPI Throat: no symptoms reported Respiratory: no symptoms reported Cardiovascular: no symptoms reported Gastrointestinal: no symptoms reported Musculoskeletal: no symptoms reported Skin: see HPI Neurological: No Symptoms Reported Hematologic/Lymphatic: No Symptoms Reported Immunological/Allergic: no symptoms reported Past Wgjwffn-Zdmdcj-Sjiubn Hx Patient Social History Alcohol Use: Occasionally Uses Alcohol Beverage of Choice: Beer, Cheap Liquor Recreational Drug Use: No (DENIES) Smoking Status: Current Everyday Smoker (1 PPD) Type Used: Cigarettes 2nd Hand Smoke Exposure: Yes Recent Foreign Travel: No Contact w/Someone Who Travel: No Recent Infectious Disease Expo: No Recent Hopitalizations: No Immunizations Up To Date Tetanus Booster (TDap): Less than 5yrs (02/2018) PED Vaccines UTD: Yes Seasonal Allergies Seasonal Allergies: Yes Past Medical History Surgeries: Yes (LEFT ELBOW FX/ORIF; RIGHT HAND TENDON REPAIR; BILATERAL JAW FX/WIRED 03/2018) Orthopedic Respiratory: No Cardiac: No Neurological: No HIV/AIDS: No Genitourinary: No Gastrointestinal: No Musculoskeletal: Yes (LEFT ELBOW FX; RIGHT HAND TENDON INJURY) Fractures Endocrine: No HEENT: Yes (BILATERAL JAW FX/WIRED 03/2018) Cancer: No Psychosocial: No Integumentary: Yes ("STAPH" INFECTIONS, PER PT) Blood Disorders: No Family Medical History Psychiatric Problems Physical Exam Vital Signs Vital Signs - First Documented 11/10/18 22:08 Temp 97.4 Pulse 99 Resp 16 B/P (MAP) 156/105 (122) Pulse Ox 99 Height, Weight, BMI Height: 5'9.00" Weight: 165lbs. 1.6oz. 74.673366em; 22.3 BMI Method:Stated General Appearance: WD/WN, no apparent distress, other (ODOR OF ETOH) Eyes: bilateral eye normal inspection, bilateral eye PERRL, bilateral eye EOMI Nose: normal inspection Mouth/Throat: No dental tenderness, No trismus; other (MODERATE SWELLING, ERYTHEMA AND TENDERNESS TO RIGHT UPPER LIP AREA, WITH CENTRAL SCAB. NO AREAS OF FLUCTUANCE, NO DRAINAGE. NO STREAKS. MILDER SWELLING AND ERYTHEMA AND TENDERNESS TO RIGHT CHEEK AND MANDIBLE AREA. NO TENDERNESS TO TEETH OR GROSS DENTAL DECAY OR GUM SWELLING. ) Neck: non-tender, full range of motion, supple, lymphadenopathy (R) Cardiovascular: regular rate, rhythm, no murmur Respiratory: normal breath sounds Neurologic/Psychiatric: precipitate washer II-XII nml as tested, no motor/sensory deficits, alert, normal mood/affect, oriented x 3 Skin: normal color, warm/dry, other ( ABOVE) Progress/Results/Core Measures Results/Orders Lab Results Laboratory Tests Test 11/10/18 22:50 Range/Units White Blood Count 12.4 H 4.3-11.0 10^3/uL Red Blood Count 4.93 4.35-5.85 10^6/uL Hemoglobin 15.3 13.3-17.7 G/DL Hematocrit 42 40-54 % Mean Corpuscular Volume 86 80-99 FL Mean Corpuscular Hemoglobin 31 25-34 PG Mean Corpuscular Hemoglobin Concent 36 32-36 G/DL Red Cell Distribution Width 13.1 10.0-14.5 % Platelet Count 172 130-400 10^3/uL Mean Platelet Volume 11.1 H 7.4-10.4 FL Neutrophils (%) (Auto) 75 42-75 % Lymphocytes (%) (Auto) 16 12-44 % Monocytes (%) (Auto) 8 0-12 % Eosinophils (%) (Auto) 2 0-10 % Basophils (%) (Auto) 0 0-10 % Neutrophils # (Auto) 9.2 H 1.8-7.8 X 10^3 Lymphocytes # (Auto) 1.9 1.0-4.0 X 10^3 Monocytes # (Auto) 1.0 0.0-1.0 X 10^3 Eosinophils # (Auto) 0.2 0.0-0.3 10^3/uL Basophils # (Auto) 0.0 0.0-0.1 10^3/uL Erythrocyte Sedimentation Rate 9 0-15 MM/HR Prothrombin Time 13.6 12.2-14.7 SEC INR Comment 1.0 0.8-1.4 Activated Partial Thromboplast Time 31 24-35 SEC Sodium Level 140 135-145 MMOL/L Potassium Level 3.8 3.6-5.0 MMOL/L Chloride Level 101 98-107 MMOL/L Carbon Dioxide Level 25 21-32 MMOL/L Anion Gap 14 5-14 MMOL/L Blood Urea Nitrogen 12 7-18 MG/DL Creatinine 1.01 0.60-1.30 MG/DL Estimat Glomerular Filtration Rate > 60 BUN/Creatinine Ratio 12 Glucose Level 94 70-105 MG/DL Lactic Acid Level 0.86 0.50-2.00 MMOL/L Calcium Level 9.8 8.5-10.1 MG/DL Corrected Calcium 9.5 8.5-10.1 MG/DL Total Bilirubin 0.7 0.1-1.0 MG/DL Aspartate Amino Transf (AST/SGOT) 23 5-34 U/L Alanine Aminotransferase (ALT/SGPT) 20 0-55 U/L Alkaline Phosphatase 65 40-136 U/L C-Reactive Protein High Sensitivity 3.28 H 0.00-0.50 MG/DL Total Protein 7.4 6.4-8.2 GM/DL Albumin 4.4 3.2-4.5 GM/DL Amylase Level 23 L 25-125 U/L Lipase 14 8-78 U/L Serum Alcohol < 10 <10 MG/DL My Orders Orders - MANUEL,RODRIGUEZ K DO Ed Iv/Invasive Line Start (11/10/18 22:35) Alcohol (11/10/18 22:35) Amylase (11/10/18 22:35) Cbc With Automated Diff (11/10/18 22:35) Comprehensive Metabolic Panel (11/10/18 22:35) Hs C Reactive Protein (11/10/18 22:35) Erythrocyte Sedimentation Rate (11/10/18 22:35) Drug Screen Stat (Urine) (11/10/18 22:35) Lactic Acid Analyzer (11/10/18 22:35) Lipase (11/10/18 22:35) Protime With Inr (11/10/18 22:35) Partial Thromboplastin Time (11/10/18 22:35) Ua Culture If Indicated (11/10/18 22:35) Blood Culture (11/10/18 22:35) Ketorolac Injection (Toradol Injection) (11/10/18 22:35) Clindamycin 900 Mg/50 Ml Ivpb (Cleocin P (11/10/18 22:45) Ct Maxillofacial W (11/10/18 22:53) Iohexol Injection (Omnipaque 350 Mg/Ml 1 (11/10/18 23:30) Ns (Ivpb) (Sodium Chloride 0.9%) (11/10/18 23:30) Medications Given in ED Current Medications Medications Dose Ordered Sig/Elaina Route Start Time Stop Time Status Last Admin Dose Admin Clindamycin Phosphate/Dextrose 50 ml @ 100 mls/hr ONCE ONCE IV 11/10/18 22:45 11/10/18 23:14 DC 11/10/18 23:16 100 MLS/HR Iohexol 75 ml ONCE ONCE IV 11/10/18 23:30 11/10/18 23:31 DC 11/10/18 23:27 75 ML Sodium Chloride 250 ml ONCE ONCE IV 11/10/18 23:30 11/10/18 23:31 DC 11/10/18 23:27 100 ML Vital Signs/I&O 11/10/18 22:08 Temp 97.4 Pulse 99 Resp 16 B/P (MAP) 156/105 (122) Pulse Ox 99 Blood Pressure Mean: 122 Progress Progress Note : Progress Note PT ADAMANTLY REFUSES ADMIT, ADVISED HIM OF NEED FOR ADMIT WITH IV ANTIBIOTICS. PT ONLY WANTS ORAL ANTIBIOTICS PT SIGNING OUT AMA AGAIN STRONGLY ADVISED THE IMPORTANCE OF FOLLOW UP WITH LOCAL TOMORROW FOR FURTHER CARE Diagnostic Imaging Comments CT MAXILLOFACIALS--MODERATE SUB Q CELLULITIS OF RIGHT UPPER LIP, WITH AREA OF PROBABLE DEVELOPING ABSCESS OF 7 MM WITHIN SUB Q UPPER LIP. HIGHER IN RIGHT MAXILLA IS PERIODONTAL LUCENCY OF RIGHT FIRST MOLAR, BUT DOES NOT APPEAR TO BE CONTIGUOUS WITH CELLULITIS, SUSPICIOUS FOR ROOT ABSCESS--PER [facility] VIA FAX AT [id number] Reviewed: Reviewed by Me Departure Impression Primary Impression: Left against medical advice Additional Impressions: Cellulitis and abscess of face Periapical abscess with facial involvement Disposition: 07 AGAINST MEDICAL ADVICE Condition: Against Medical Advice Departure-Patient Inst. Referrals: [facility] (PCP/Family) Primary Care Physician Patient Instructions: Cellulitis (Skin Infection), Adult (DC), Leaving Against Medical Advice, Skin Abscess, Tooth Abscess (DC) Add. Discharge Instructions: FOLLOW UP WITH TOMORROW FOR FURTHER CARE All discharge instructions reviewed with patient and/or family. Voiced understanding. Scripts Clindamycin HCl (Clindamycin HCl) 300 Mg Capsule 300 MG PO QID for FOR INFECTION, #40 CAP Prov: RODRIGUEZ JACKSON DO 11/10/18 RODRIGUEZ JACKSON DO November 10, 2018 22:47
--- NOTE | 2018-11-10 22:50 | NUR ---
pt denies being able to void.
[2018-11-10 23:04] LABS: BASOPHILS % (AUTO) 0 % (0-10); EOSINOPHILS # (AUTO) 0.2 10^3/uL (0.0-0.3); EOSINOPHILS % (AUTO) 2 % (0-10); HEMATOCRIT 42 % (40-54); HEMOGLOBIN 15.3 G/DL (13.3-17.7); LYMPHOCYTES # (AUTO) 1.9 X 10^3 (1.0-4.0); LYMPHOCYTES % (AUTO) 16 % (12-44); MEAN CORPUSCULAR HEMOGLOBIN 31 PG (25-34); MEAN CORPUSCULAR HGB CONC 36 G/DL (32-36); MEAN CORPUSCULAR VOLUME 86 FL (80-99); MEAN PLATELET VOLUME 11.1 FL (7.4-10.4); MONOCYTES % (AUTO) 8 % (0-12); NEUTROPHILS # (AUTO) 9.2 X 10^3 (1.8-7.8); NEUTROPHILS % (AUTO) 75 % (42-75); PLATELET COUNT 172 10^3/uL (130-400); RED CELL DISTRIBUTION WIDTH 13.1 % (10.0-14.5); WHITE BLOOD COUNT 12.4 10^3/uL (4.3-11.0)
[2018-11-10 23:11] LABS: PROTHROMBIN TIME PATIENT 13.6 SEC (12.2-14.7)
[2018-11-10 23:20] LABS: ALANINE AMINOTRANSFERASE 20 U/L (0-55); ALBUMIN 4.4 GM/DL (3.2-4.5); ALKALINE PHOSPHATASE 65 U/L (40-136); AMYLASE 23 U/L (25-125); BILIRUBIN,TOTAL 0.7 MG/DL (0.1-1.0); BUN/CREATININE RATIO 12; CALCIUM 9.8 MG/DL (8.5-10.1); CARBON DIOXIDE 25 MMOL/L (21-32); CHLORIDE 101 MMOL/L (98-107); CREATININE SERUM 1.01 MG/DL (0.60-1.30); GFR ESTIMATED > 60; GLUCOSE 94 MG/DL (70-105); LIPASE 14 U/L (8-78); POTASSIUM 3.8 MMOL/L (3.6-5.0); SODIUM 140 MMOL/L (135-145); TOTAL PROTEIN 7.4 GM/DL (6.4-8.2)
[2018-11-10] MEDS ORDERED: NS 250 ML (IVPB) BAG IV ONE (23:30)
[2018-11-10] MEDS ORDERED: IOHEXOL 350 MG/ML 100 ML (OMNIPAQUE 350) VIAL IV ONE (23:30)
[2018-11-10 23:40] LABS: ERYTHROCYTE SEDIMENTATION RATE 9 MM/HR (0-15)
--- NOTE | 2018-11-10 23:48 | NUR ---
abx finished, pt denies needs at this time. informed we are still waiting on results.
[2018-11-10] MEDS ORDERED: CLIN300C11 PO (23:59)
[2018-11-11 00:05] VITALS: BP 125/85
--- NOTE | 2018-11-11 00:05 | NUR ---
pt declined admission for further iv abx. rx for abx sent to [facility]. pt handed discharge instructions and left them in room.
--- NOTE | 2018-11-11 07:15 | Diagnostic Imaging Report ---
PROCEDURE: CT maxillofacial with contrast. TECHNIQUE: After intravenous administration of contrast, axial images were obtained through the face and reformatted into coronal and sagittal planes. Auto Exposure Controls were utilized during the CT exam to meet ALARA standards for radiation dose reduction. INDICATION: Face swelling and pain. FINDINGS: The visualized intracranial structures are unremarkable. The frontal, ethmoid, sphenoid and maxillary sinuses are clear. Mastoid air cells are clear. The nasopharyngeal and oropharyngeal tissues are symmetrical without mass effect. There is a periapical lucency about the right first maxillary molar. There is some soft tissue swelling about the right upper lip. Questionable tiny fluid collection. Early abscess cannot be excluded. There is a 1 cm reactive appearing lymph node posterior to the mandibular ramus on the right. Visualized osseous structures are unremarkable. The prevertebral soft tissues are within normal limits. Epiglottis is unremarkable. The globes and intraorbital structures are unremarkable. IMPRESSION: Soft tissue induration suspect for cellulitis in the right upper lip. There is a periapical lucency about the right first maxillary molar compatible with abscess. There is also questionable low attenuating fluid collection in the upper lip which may reflect early soft tissue abscess. Recommend clinical correlation. Otherwise unremarkable maxillofacial CT. Dictated by: Dictated on workstation # [id number]
[2018-11-11] MEDS ORDERED: SULF1TAB35 PO (17:37)
[2018-11-11] MEDS ORDERED: ACHD5005 PO (17:37)
== END 2018-11-11 00:08 | disposition left against medical advice (07) ==
LOC: EDUNIT# 21:44 → ER 21:45
DX: L03.211 Cellulitis of face (principal); L02.01 Cutaneous abscess of face; K04.7 Periapical abscess without sinus; F10.10 Alcohol abuse, uncomplicated; F17.210 Nicotine dependence, cigarettes, uncomplicated; Z88.1 Allergy status to other antibiotic agents; Z98.890 Other specified postprocedural states
CPT/HCPCS: 36415; 70487; 80053; 80320; 82150; 83605; 83690; 85025; 85610; 85652; 85730; 86141; 87040

== ENCOUNTER 2018-11-11 13:39 | Emergency (ER) | payer SELFPAY ==
[~2018-11-11] VITALS: Ht 175.3 cm; Wt 74.8 kg
--- NOTE | 2018-11-11 16:49 | ED Integumentary General ---
General Chief Complaint: Skin/Wound Problems Stated Complaint: LIP SWELLING Nursing Triage Note: Patient has swelling to his right upper lip and face. He advises he was seen and evaluted in the ER yesterday and at that time admission was reccommended. The patient declined secondary to needing to go to work. He advises today that the pain has become progressively worse. Source: patient Exam Limitations: no limitations History of Present Illness Date Seen by Provider: November 11, 2018 Time Seen by Provider: 16:40 Initial Comments The patient presents ER by private conveyance with chief complaint of 3 days of the swelling abscess on his right upper lip. He drained it twice on his own without lidocaine. He has not been to see a doctor and has not started any antibiotics. He broke his jaw about a year ago and he said this is happened once before. He is feeling swelling all the way into his cheek on the right side. No fevers chills nausea vomiting. Allergies and Home Medications Allergies Coded Allergies: vancomycin (Verified Allergy, Mild, 02/26/18) Itching Home Medications Clindamycin HCl 300 Mg Capsule, 300 MG PO QID Prescribed by: RODRIGUEZ JACKSON on 11/10/18 [id number] Patient Home Medication List Home Medication List Reviewed: Yes Review of Systems Review of Systems Constitutional: No chills, No fever EENTM: No ear discharge, No ear pain Respiratory: No cough, No phlegm Cardiovascular: No chest pain, No edema Gastrointestinal: No abdominal pain, No constipation Past Cxprunr-Uovtrz-Mmvfno Hx Patient Social History Alcohol Use: Occasionally Uses Number of Drinks Today: CC Alcohol Beverage of Choice: Beer, Cheap Liquor Recreational Drug Use: No Type Used: Cigarettes 2nd Hand Smoke Exposure: Yes Recent Foreign Travel: No Contact w/Someone Who Travel: No Recent Infectious Disease Expo: No Recent Hopitalizations: No Immunizations Up To Date Tetanus Booster (TDap): Less than 5yrs PED Vaccines UTD: Yes Seasonal Allergies Seasonal Allergies: Yes Past Medical History Surgeries: Yes Orthopedic Respiratory: No Cardiac: No Neurological: No HIV/AIDS: No Genitourinary: No Gastrointestinal: No Musculoskeletal: Yes (LEFT ELBOW FX; RIGHT HAND TENDON INJURY) Fractures Endocrine: No HEENT: Yes (BILATERAL JAW FX/WIRED 03/2018) Cancer: No Psychosocial: No Integumentary: Yes ("STAPH" INFECTIONS, PER PT) Blood Disorders: No Family Medical History Psychiatric Problems Physical Exam Vital Signs Vital Signs - First Documented 11/11/18 14:19 Pulse 96 Resp 14 B/P (MAP) 153/101 (118) Pulse Ox 98 O2 Delivery Room Air Capillary Refill : Less Than 3 Seconds General Appearance: WD/WN, mild distress HEENT: PERRL/EOMI, pharynx normal, other (right upper lip is swollen and indurated tender abscess with pointing) Cardiovascular: normal peripheral pulses, regular rate, rhythm Respiratory: no respiratory distress, no accessory muscle use Neurologic/Psychiatric: alert, normal mood/affect, oriented x 3 Skin: normal color, warm/dry, other (erythematous abscess right upper lip) Procedures/Interventions I&D : Site: right upper lip Blade Size: 11 I & D Procedure: betadine prep (chlorhexidine) Progress Wound was cleaned thoroughly with chlorhexidine and infiltrated with 1 cc of lidocaine without epinephrine 1%. Wound was then cleaned with Betadine and lanced 1 cm hole with the 11 blade scalpel provided and drained about 3-5 cc of purulent matter Progress/Results/Core Measures Results/Orders My Orders Orders - SRIDEVI KHAN Ketorolac Injection (Toradol Injection) (11/11/18 17:00) Hydrocodone/Apap 5/325 Tablet (Lortab 5 (11/11/18 17:00) Lidocaine 1% Inj 20 Ml (Xylocaine 1% Inj (11/11/18 17:00) Sulfamethoxazole/Trimet Ds Tab (Bactrim (11/11/18 17:00) Medications Given in ED Current Medications Medications Dose Ordered Sig/Elaina Route Start Time Stop Time Status Last Admin Dose Admin Acetaminophen/ Hydrocodone Bitart 1 tab ONCE ONCE PO 11/11/18 17:00 11/11/18 17:01 DC 11/11/18 16:55 1 TAB Ketorolac Tromethamine 30 mg ONCE ONCE IVP 11/11/18 17:00 11/11/18 17:01 DC 11/11/18 16:55 30 MG Trimethoprim/ Sulfamethoxazole 1 ea ONCE ONCE PO 11/11/18 17:00 11/11/18 17:01 DC 11/11/18 16:55 1 EA Vital Signs/I&O 11/11/18 14:19 Pulse 96 Resp 14 B/P (MAP) 153/101 (118) Pulse Ox 98 O2 Delivery Room Air Blood Pressure Mean: 118 Departure Impression Primary Impression: Abscess Disposition: 01 HOME, SELF-CARE Condition: Improved Departure-Patient Inst. Decision time for Depature: 17:34 Referrals: [facility] (PCP/Family) Primary Care Physician Patient Instructions: Abscess Incision and Drainage Add. Discharge Instructions: Keep the wound clean with regular soap and water. Squeeze any discharge out of it and keep a light gauze dressing on it. Use the Bactrim 2 capsules twice a day until completion. If it's not improving by day 3 or 4 follow up with a primary care doctor to be reassessed. Return to the ER or primary care doctor if it starts to reaccumulate and get bigger. Ibuprofen 800 mg every 8 hours as needed. Hydrocodone one to 2 tablets every 6 hours as needed for pain. All discharge instructions reviewed with patient and/or family. Voiced understanding. Scripts Hydrocodone Bit/Acetaminophen (Hydrocodone/Acetaminophen 5/325mg Tablet) 1 Tab Tab 1-2 EACH PO Q6H PRN for PAIN-MODERATE MDD 10 for 3 Days, #16 TAB 0 Refills Prov: SRIDEVI KHAN 11/11/18 Sulfamethoxazole/Trimethoprim (Bactrim Ds Tablet) 1 Each Tablet 2 EACH PO BID for 7 Days, #28 TAB 0 Refills Prov: SRIDEVI KHAN 11/11/18 SRIDEVI KHAN November 11, 2018 16:49
[2018-11-11] MEDS ORDERED: KETOROLAC 30 MG/ML VIAL IVP ONE (17:00)
[2018-11-11] MEDS ORDERED: LIDOCAINE 1% INJ 20 ML 20 ML VIAL INJ ONE (17:00)
[2018-11-11] MEDS ORDERED: HYDROcodone/APAP 5 MG/325 MG (LORTAB) TAB PO ONE (17:00)
[2018-11-11] MEDS ORDERED: TRIM/SULFAMETH 160/800 (SEPTRA DS) TAB PO ONE (17:00)
[2018-11-11] MEDS ORDERED: SULF1TAB35 PO (17:37)
[2018-11-11] MEDS ORDERED: ACHD5005 PO (17:37)
[2018-11-11 17:43] VITALS: BP 153/101
== END 2018-11-11 17:40 | disposition home or self-care (01) ==
LOC: EDUNIT# 13:39 → ER 13:40
DX: K13.0 Diseases of lips (principal); Z88.1 Allergy status to other antibiotic agents; Z77.22 Contact with and (suspected) exposure to environmental tobacco smoke (acute) (chronic)
CPT/HCPCS: 10060

== ENCOUNTER 2018-12-08 14:28 | Emergency (ER) | payer SELFPAY ==
[~2018-12-08] VITALS: Ht 177.8 cm; Wt 73.9 kg
[~2018-12-08 14:28] MED LIST changes: +SULF1TAB35 PO
[2018-12-08] MEDS ORDERED: L.E.T. SYRINGE 5 ML ONE (14:36)
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
[2018-12-08] MEDS ORDERED: LIDOCAINE TOPICAL 4% 50 ML BTL TP ONE (14:45)
[2018-12-08] MEDS ORDERED: L.E.T. SYRINGE 5 ML TOP ONE (14:45)
[2018-12-08] MEDS ORDERED: SULF1TAB34 PO (14:49)
[2018-12-08] MEDS ORDERED: MUPI15CR11 TP ×2 (14:50→14:52)
[2018-12-08] MEDS ORDERED: SULF1TAB35 PO (14:52)
[2018-12-08 14:55] VITALS: BP 134/96
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
== END 2018-12-08 14:55 | disposition home or self-care (01) ==
LOC: EDUNIT# 14:28 → ER 14:29
DX: L03.312 Cellulitis of back [any part except buttock and flank] (principal); L73.9 Follicular disorder, unspecified; F17.210 Nicotine dependence, cigarettes, uncomplicated; Z88.1 Allergy status to other antibiotic agents; Z98.890 Other specified postprocedural states
CPT/HCPCS: 99282

== ENCOUNTER 2018-12-22 20:38 | Emergency (ER) | payer SELFPAY ==
[~2018-12-22] VITALS: Ht 175.3 cm; Wt 69.9 kg
[~2018-12-22 20:38] MED LIST changes: +MUPI15CR11 TP; +SULF1TAB34 PO
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
[2018-12-22] MEDS ORDERED: SULF1TAB35 PO ×2 (20:59→21:17)
--- NOTE | 2018-12-22 20:59 | ED Integumentary General ---
General Chief Complaint: Skin/Wound Problems Stated Complaint: STAPH INFECTION Source: patient Exam Limitations: no limitations History of Present Illness Date Seen by Provider: Dec 22, 2018 Time Seen by Provider: 20:45 Initial Comments Patient presents to ER by private conveyance with chief complaint of a staph infection in his left anterior leg. He says he's had these before and had have him treated with ointments and antibiotics. This started about 2 or 3 days ago and today he cut himself with a knife got a drain quite a bit of purulence. He then took 3 tablets of Bactrim which he had left over from a previous infection this morning. This evening when he woke up from a nap however he noticed that the swelling and redness were more significant. No fevers chills nausea. Allergies and Home Medications Allergies Coded Allergies: vancomycin (Verified Allergy, Mild, 02/26/18) Itching Home Medications Clindamycin HCl 300 Mg Capsule, 300 MG PO QID Prescribed by: RODRIGUEZ JACKSON on 11/10/18 4629 Hydrocodone Bit/Acetaminophen 1 Tab Tab, 1-2 EACH PO Q6H PRN for PAIN-MODERATE Prescribed by: SRIDEVI KHAN on 11/11/18 1737 Mupirocin Calcium 15 Gm Cream..g., 15 GM TP BID Prescribed by: MEHRAN SEGURA on 12/09/18 1152 Mupirocin Calcium 15 Gm Cream..g., 15 GM TP BID Prescribed by: MEHRAN SEGURA on 12/08/18 1452 Sulfamethoxazole/Trimethoprim 1 Each Tablet, 2 EACH PO BID Prescribed by: SRIDEVI KHAN on 11/11/18 1737 Sulfamethoxazole/Trimethoprim 1 Each Tablet, 1 EACH PO BID Prescribed by: MEHRAN SEGURA on 12/09/18 1152 Sulfamethoxazole/Trimethoprim 1 Each Tablet, 1 EACH PO BID Prescribed by: MEHRAN SEGURA on 12/08/18 1452 Sulfamethoxazole/Trimethoprim 1 Each Tablet, 2 EACH PO BID Prescribed by: SRIDEVI KHAN on 12/22/182058 Patient Home Medication List Home Medication List Reviewed: Yes Review of Systems Review of Systems Constitutional: No chills, No fever, No malaise EENTM: No ear discharge, No hearing loss Respiratory: No cough, No short of breath Cardiovascular: No chest pain, No edema Gastrointestinal: No abdominal pain, No nausea Past Mlxrued-Qhtmyd-Uzszma Hx Patient Social History Alcohol Use: Regular Use Alcohol Beverage of Choice: Beer, Cheap Liquor Recreational Drug Use: No Smoking Status: Current Everyday Smoker Type Used: Cigarettes 2nd Hand Smoke Exposure: Yes Recent Foreign Travel: No Contact w/Someone Who Travel: No Recent Hopitalizations: No Immunizations Up To Date Tetanus Booster (TDap): Less than 5yrs PED Vaccines UTD: Yes Seasonal Allergies Seasonal Allergies: Yes Past Medical History Surgeries: Yes Orthopedic Respiratory: No Currently Using CPAP: No Currently Using BIPAP: No Cardiac: No Neurological: No Sexually Transmitted Disease: No HIV/AIDS: No Genitourinary: No Gastrointestinal: No Musculoskeletal: Yes (LEFT ELBOW FX; RIGHT HAND TENDON INJURY) Fractures Endocrine: No HEENT: Yes (BILATERAL JAW FX/WIRED 03/2018) Cancer: No Psychosocial: No Integumentary: Yes ("STAPH" INFECTIONS, PER PT) Recent Skin Changes Blood Disorders: No Family Medical History Psychiatric Problems Physical Exam Vital Signs Vital Signs - First Documented 12/22/18 20:46 Temp 97.3 Pulse 116 Resp 20 B/P (MAP) 150/99 (116) Pulse Ox 100 Capillary Refill : General Appearance: WD/WN, no apparent distress HEENT: PERRL/EOMI, pharynx normal Cardiovascular: normal peripheral pulses, regular rate, rhythm, no edema Respiratory: no respiratory distress, no accessory muscle use Neurologic/Psychiatric: alert, normal mood/affect, oriented x 3 Skin: other (erythema with a 3 cm base of red induration and central pointing with purulence coming from it on the left anterior hayes. Not circumferential.) Procedures/Interventions I&D : Site: left anterior hayes Blade Size: 11 I & D Procedure: betadine prep (chlorhexidine) Progress 3 cc total. When the skin was ascertained to be anesthetized we made a cross cotto incision draining out about 5 cc of purulent material. Patient tolerated procedure well. Progress/Results/Core Measures Results/Orders My Orders Orders - SRIDEVI KHAN Ibuprofen Tablet (Motrin Tablet) (12/22/18 21:00) Lidocaine 1% Inj 20 Ml (Xylocaine 1% Inj (12/22/18 21:00) Sulfamethoxazole/Trimet Ds Tab (Bactrim (12/22/18 21:00) Medications Given in ED Current Medications Medications Dose Ordered Sig/Elaina Route Start Time Stop Time Status Last Admin Dose Admin Ibuprofen 800 mg ONCE ONCE PO 12/22/18 21:00 12/22/18 21:01 DC 12/22/18 21:01 800 MG Lidocaine HCl 20 ml ONCE ONCE INJ 12/22/18 21:00 12/22/18 21:01 DC 12/22/18 21:00 20 ML Trimethoprim/ Sulfamethoxazole 2 ea ONCE ONCE PO 12/22/18 21:00 12/22/18 21:01 DC 12/22/18 21:01 2 EA Vital Signs/I&O 12/22/18 20:46 Temp 97.3 Pulse 116 Resp 20 B/P (MAP) 150/99 (116) Pulse Ox 100 Progress Progress Note : Time: 20:56 Progress Note Outlined the erythema with a marker and we'll start him on some antibiotics giving him instructions to expect improvement over the next 3-4 days. We'll give him some Bactrim and ibuprofen tonight. Plan to shalonda the wound further and open it up get any drainage washed out. We discussed bleach baths routinely as he seems to have had multiple of these infections. Departure Impression Primary Impression: Abscess Disposition: HOME, SELF-CARE Condition: Stable Departure-Patient Inst. Decision time for Depature: 21:15 Referrals: [facility] (PCP/Family) Primary Care Physician Patient Instructions: Abscess Incision and Drainage (DC) Add. Discharge Instructions: Keep the wound clean with regular soap and water and apply bacitracin around the wound twice daily. Take the Bactrim 2 tablets twice a day for the next 5 days. 1-2 capfuls of bleach in about 2-4 inches of water in your bathtub once or twice a week for the next month or 2 to help reduce the incidence of abscesses. Tylenol 1000 mg every 8 hours in addition to ibuprofen 800 mg every 8 hours as needed for pain. Warm compresses applied directly over the wound can help it heal faster as well as help with pain. All discharge instructions reviewed with patient and/or family. Voiced understanding. Scripts Mupirocin Calcium (Mupirocin) 15 Gm Cream..g. 1 GM TP BID for 7 Days, #1 TUBE 0 Refills Prov: SRIDEVI KHAN 12/22/18 Sulfamethoxazole/Trimethoprim (Bactrim Ds Tablet) 1 Each Tablet 2 EACH PO BID for 5 Days, #20 TAB 0 Refills Prov: SRIDEVI KHAN 12/22/18 SRIDEVI KHAN Dec 22, 2018 20:59
[2018-12-22] MEDS ORDERED: IBUPROFEN 800 MG (MOTRIN) TAB PO ONE (21:00)
[2018-12-22] MEDS ORDERED: TRIM/SULFAMETH 160/800 (SEPTRA DS) TAB PO ONE (21:00)
[2018-12-22] MEDS ORDERED: LIDOCAINE 1% INJ 20 ML 20 ML VIAL INJ ONE (21:00)
[2018-12-22] MEDS ORDERED: MUPI15CR11 TP (21:17)
[2018-12-22 21:20] VITALS: BP 150/99
== END 2018-12-22 21:20 | disposition home or self-care (01) ==
LOC: EDUNIT# 20:38 → ER 20:40
DX: L02.416 Cutaneous abscess of left lower limb (principal); F17.210 Nicotine dependence, cigarettes, uncomplicated; Z88.1 Allergy status to other antibiotic agents

== ENCOUNTER 2018-12-25 03:46 | Emergency (ER) | payer SELFPAY ==
--- OUTSIDE RECORDS SUMMARY | 2018-12-25 03:52 | XMS REPORT | Continuity of Care Document ---
Author Organization Unknown Address Unknown Allergies Active Description Code Type Severity Reaction Onset Reported/Identified Relationship to Patient Clinical Status Yes NKANo Known Allergies NKA Miscellaneous Allergy Mild N/A 07/31/2009 Yes ketorolac [id number] Drug Allergy Mild N/A 02/26/2018 Yes vancomycin [id number] Drug Allergy Mild N/A 02/26/2018 Medications There is no data. Problems Date Dx Coded Attending Type Code Diagnosis Diagnosed By 02/27/2018 KOKO JENKINS DO, Ot L02.511 CUTANEOUS ABSCESS OF RIGHT HAND 02/27/2018 KOKO JENKINS DO, Ot L03.012 CELLULITIS OF LEFT FINGER 02/27/2018 KKOO JENKINS DO, Ot S67.193A CRUSHING INJURY OF [...] LOCALIZED SWELLING, MASS AND LUMP, HEAD 11/12/2018 [place] , RODRIGUEZ K Ot Z88.1 ALLERGY STATUS TO OTHER ANTIBIOTIC AGENT 11/12/2018 MANUEL , RODRIGUEZ K Ot Z98.890 OTHER SPECIFIED POSTPROCEDURAL STATES 11/12/2018 MANUEL , RODRIGUEZ K Ot F10.10 ALCOHOL ABUSE, UNCOMPLICATED 11/12/2018 MANUEL , RODRIGUEZ K Ot F17.210 NICOTINE DEPENDENCE, CIGARETTES, UNCOMPL 11/12/2018 [place] JONATHAN RIVASA K Ot K04.7 PERIAPICAL ABSCESS WITHOUT SINUS 11/12/2018 MANUEL RODRIGUEZ K Ot L02.01 CUTANEOUS ABSCESS OF FACE 11/12/2018 MANUEL RODRIGUEZ K Ot L03.211 CELLULITIS OF FACE 11/12/2018 [place] JONATHAN RIVASA K Ot R22.0 LOCALIZED SWELLING, MASS AND LUMP, HEAD 11/12/2018 [place] RODRIGUEZ K Ot Z88.1 ALLERGY STATUS TO OTHER ANTIBIOTIC AGENT 11/12/2018 [place] , RODRIGUEZ K Ot Z98.890 OTHER SPECIFIED [...] PAIN IN THORACIC SPINE 12/08/2018 MEHRAN SEGURA APRN Ot Z88.1 ALLERGY STATUS [...] APRN Ot Z98.890 OTHER SPECIFIED POSTPROCEDURAL STATES 12/24/2018 SRIDEVI KHAN MD Ot F17.210 NICOTINE DEPENDENCE, CIGARETTES, UNCOMPL 12/24/2018 SRIDEVI KHAN MD Ot L02.416 CUTANEOUS ABSCESS OF LEFT LOWER LIMB 12/24/2018 SRIDEVI KHAN MD Ot Z88.1 ALLERGY STATUS TO OTHER ANTIBIOTIC AGENT Procedures Code Description Performed By Performed On [id number] DRAINAGE OF FINGER NAIL, EXTERNAL APPROA 02/26/2018 [...] - 02/25/18 23:00 QUANTITY OF GROWTH Isolated [facility] Bacterial blood culture [id number] [facility] Gram stain microscopy - 02/25/18 23:07 Gram stain microscopy REPORTED 02-26-2018, 1605 [facility] Bacteria identification in wound by culture - 02/25/18 23:07 Bacteria identification in wound [facility] QUANTITY OF GROWTH . [facility] Bacterial blood culture - 02/25/18 23:39 QUANTITY OF GROWTH . [facility] Bacterial blood culture SEE COMMEN [facility] Complete blood count (CBC) with automated white [...] Status Pt. Type Provider Facility Loc./Unit Complaint [id number] 12/22/2018 20:40:00 12/22/2018 21:20:00 DIS Outpatient SRIDEVI KHAN MD Via [facility] ER STAPH INFECTION [id number] 12/08/2018 14:29:00 12/08/2018 14:55:00 DIS Emergency MEHRAN SEGURA APRN Via [facility] ER STAPH INFECTION;CHEST PAIN [id number] 11/11/2018 13:40:00 11/11/2018 17:40:00 DIS Outpatient SRIDEVI KHAN MD Via [facility] ER LIP SWELLING [id number] 11/10/2018 21:45:00 11/11/2018 00:08:00 DIS Outpatient RODRIGUEZ JACKSON DO Via [facility] ER LIP SWELLING [id number] 11/10/2018 19:10:00 11/10/2018 19:48:00 DIS Outpatient RODRIGUEZ JACKSON DO Via [facility] ER R SIDE LIP/JAW SWELLING [id number] 04/17/2018 07:36:00 04/17/2018 08:46:00 DIS Emergency JAMAAL DONG MD Via [facility] ER JAW INJ [id number] 04/14/2018 22:26:00 04/15/2018 00:05:00 DIS Emergency ERIN SHAH, SRIDEVI Rodney Via [facility] ER JAW INJURY [id number] 02/26/2018 01:16:00 02/27/2018 15:50:00 DIS Inpatient KOKO JENKINS DO Via [facility] 4TH SEPSIS,FINGER ABSCESS,CRUSH INJURY
--- NOTE | 2018-12-25 04:04 | NUR ---
PT NOT PRESENT IN ED WAITING AREA WHEN HIS NAME CALLED. 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
--- NOTE | 2018-12-25 04:16 | NUR ---
PT'S NAME CALLED, FEMALE SIGNIFICANT OTHER STATES THAT THE PT IS SOMEWHERE ELSE IN THE HOSPITAL, UNSURE OF HIS LOCATION.
--- NOTE | 2018-12-25 04:22 | NUR ---
DINING ROOM SERVER CALLS TO INFORM THIS NURSE THAT THE PATIENT HAS RETURNED TO WAITING ROOM.
--- NOTE | 2018-12-25 04:30 | NUR ---
PT NOT PRESENT IN ED WAITING, PT'S NAME CALLED THREE TIMES. PT NOW CONSIDERED AMA
[2018-12-25] MEDS ORDERED: ASPI325T32 PO (11:04)
== END 2018-12-25 04:29 | disposition left against medical advice (07) ==
LOC: EDUNIT# 03:46 → ER 03:48
DX: L08.9 Local infection of the skin and subcutaneous tissue, unspecified (principal)

== ENCOUNTER 2018-12-25 06:59 | Observation (INO) | payer SELFPAY ==
[~2018-12-25] VITALS: Ht 175.3 cm; Wt 66.2 kg
--- OUTSIDE RECORDS SUMMARY | 2018-12-25 07:06 | XMS REPORT | Continuity of Care Document ---
Author Organization Unknown Address Unknown Allergies Active Description Code Type Severity Reaction Onset Reported/Identified Relationship to Patient Clinical Status Yes NKANo Known Allergies NKA Miscellaneous Allergy Mild N/A 07/31/2009 Yes ketorolac [id number] Drug Allergy Mild N/A 02/26/2018 Yes vancomycin [id number] Drug Allergy Mild N/A 02/26/2018 Medications There [...] LOCALIZED SWELLING, MASS AND LUMP, HEAD 11/12/2018 [place] , RODRIGUEZ K Ot Z88.1 ALLERGY STATUS TO OTHER ANTIBIOTIC AGENT 11/12/2018 MANUEL , RODRIGUEZ K Ot Z98.890 OTHER SPECIFIED POSTPROCEDURAL STATES 11/12/2018 MANUEL , RODRIGUEZ K Ot F10.10 ALCOHOL ABUSE, UNCOMPLICATED 11/12/2018 MANUEL , RODRIGUEZ K Ot F17.210 NICOTINE DEPENDENCE, CIGARETTES, UNCOMPL 11/12/2018 [place] JONATHAN RIVASA K Ot K04.7 PERIAPICAL ABSCESS WITHOUT SINUS 11/12/2018 MANUEL RODRIGUEZ K Ot L02.01 CUTANEOUS ABSCESS OF FACE 11/12/2018 MANUEL RODRIGUEZ K Ot L03.211 CELLULITIS OF FACE 11/12/2018 [place] JONATHAN RIVASA K Ot R22.0 LOCALIZED SWELLING, MASS AND LUMP, HEAD 11/12/2018 [place] RODRIGUEZ K Ot Z88.1 ALLERGY STATUS TO OTHER ANTIBIOTIC AGENT 11/12/2018 [place] , RODRIGUEZ K Ot Z98.890 OTHER SPECIFIED [...] Procedures Code Description Performed By Performed On [id number] DRAINAGE OF FINGER NAIL, EXTERNAL APPROA 02/26/2018 [...] - 02/25/18 23:00 QUANTITY OF GROWTH Isolated [facility] Bacterial blood culture [id number] [facility] Gram stain microscopy - 02/25/18 23:07 Gram stain microscopy REPORTED 02-26-2018, 1605 [facility] Bacteria identification in wound by culture - 02/25/18 23:07 Bacteria identification in wound [facility] QUANTITY OF GROWTH . [facility] Bacterial blood culture - 02/25/18 23:39 QUANTITY OF GROWTH . [facility] Bacterial blood culture SEE COMMEN [facility] Complete blood count (CBC) with automated white [...] Status Pt. Type Provider Facility Loc./Unit Complaint [id number] 12/22/2018 20:40:00 12/22/2018 21:20:00 DIS Outpatient SRIDEVI KHAN MD Via [facility] ER STAPH INFECTION [id number] 12/08/2018 14:29:00 12/08/2018 14:55:00 DIS Emergency MEHRAN SEGURA APRN Via [facility] ER STAPH INFECTION;CHEST PAIN [id number] 11/11/2018 13:40:00 11/11/2018 17:40:00 DIS Outpatient SRIDEVI KHAN MD Via [facility] ER LIP SWELLING [id number] 11/10/2018 21:45:00 11/11/2018 00:08:00 DIS Outpatient RODRIGUEZ JACKSON DO Via [facility] ER LIP SWELLING [id number] 11/10/2018 19:10:00 11/10/2018 19:48:00 DIS Outpatient RODRIGUEZ JACKSON DO Via [facility] ER R SIDE LIP/JAW SWELLING [id number] 04/17/2018 07:36:00 04/17/2018 08:46:00 DIS Emergency JAMAAL DONG MD Via [facility] ER JAW INJ [id number] 04/14/2018 22:26:00 04/15/2018 00:05:00 DIS Emergency ERIN SHAH, SRIDEVI Rodney Via [facility] ER JAW INJURY [id number] 02/26/2018 01:16:00 02/27/2018 15:50:00 DIS Inpatient KOKO JENKINS DO Via [facility] 4TH SEPSIS,FINGER ABSCESS,CRUSH INJURY
[2018-12-25] MEDS ORDERED: PIPERACILLIN SODIUM/TAZOBACTAM 4.5 GM in NS (IVPB) 100 ML IV ONE (07:30)
--- NOTE | 2018-12-25 07:36 | ED Integumentary General ---
General Chief Complaint: Skin/Wound Problems Stated Complaint: LEFT LEG INFECTION Nursing Triage Note: pt reports that he has a wound on his l leg x aprox 2 weeks. Pt states he tried to drain/open it himself and that it made worse. Pt states he was seen in ED a few days ago and had it drained and was placed on antibiotics but did not get them filled. Source: patient, old records History of Present Illness Date Seen by Provider: Dec 25, 2018 Time Seen by Provider: 07:13 Initial Comments PT ARRIVES VIA POV WITH 2 FEMALES PT WAS IN ER EARLIER, BUT REPEATEDLY WAS NOT IN WAITING ROOM WHEN RN TRIED TO BRING HIM BACK TO A ROOM PT C/O INFECTION TO LEFT LOWER LEG HAS BEEN PRESENT FOR A COUPLE OF WEEKS PT STATES HE CUT IT OPEN WITH A KNIFE AT HOME, ON MORE THAN ONE OCCASION, WITHOUT RESULTS, AND HAS BEEN PUTTING OTC "PRID" ON IT PT WAS SEEN HERE 12/08/18 FOR SAME--ALSO HAD ONE ON HIS LEFT BACK AT THAT TIME--PT HAD I&D OF BOTH AREAS AT THAT TIME, AND WAS GIVEN RX'S FOR MUPIROCIN + BACTRIM --PT DID NOT FILL RX'S PT HERE 12/22/18 AGAIN FOR SAME PROBLEM ON HIS LEFT LOWER LEG--I&D PERFORMED AGAIN AND AGAIN WAS GIVEN RX'S FOR MUPIROCIN + BACTRIM, WHICH PT DID NOT GET FILLED EITHER PT CONTINUES TO PUT "PRID" ON THE AREA, AND CONTINUES TO POKE AND TRY TO "CUT" THE AREA OPEN PT PRESENTS TODAY FOR INCREASED PAIN AND REDNESS TO THE AREA HAS HAD SUBJECTIVE FEVER FOR THE LAST 3 DAYS PT DID NOT ATTEMPT TO FOLLOW UP WITH ANYONE, INSTRUCTED. PT WAS HERE 11/10 AND 11/11 FOR SIMILAR INFECTION TO HIS UPPER LIP PT ALSO HOSPITALIZED 02/2018 FOR STAPH INFECTION OF FINGER PT HAS HAD MULTIPLE VISITS HERE, AND HAS SIGNED OUT AMA OR LWBS MULTIPLE TIMES, HAS BEEN NON-COMPLIANT WITH MEDICATIONS AND FOLLOW UP'S PCP: [facility] Allergies and Home Medications Allergies Coded Allergies: vancomycin (Verified Allergy, Mild, 02/26/18) Itching Home Medications Clindamycin HCl 300 Mg Capsule, 300 MG PO QID Prescribed by: RODRIGUEZ JACKSON on 11/10/18 2268 Hydrocodone Bit/Acetaminophen 1 Tab Tab, 1-2 EACH PO Q6H PRN for PAIN-MODERATE Prescribed by: SRIDEVI KHAN on 11/11/181736 Mupirocin Calcium 15 Gm Cream..g., 15 GM TP BID Prescribed by: MEHRAN SEGURA on 12/09/18 115 Mupirocin Calcium 15 Gm Cream..g., 15 GM TP BID Prescribed by: MEHRAN SEGURA on 12/08/181451 Mupirocin Calcium 15 Gm Cream..g., 1 GM TP BID Prescribed by: SRIDEVI KHAN on 12/22/182116 Sulfamethoxazole/Trimethoprim 1 Each Tablet, 2 EACH PO BID Prescribed by: SRIDEVI KHAN on 11/11/181736 Sulfamethoxazole/Trimethoprim 1 Each Tablet, 1 EACH PO BID Prescribed by: MEHRAN SEGURA on 12/09/181151 Sulfamethoxazole/Trimethoprim 1 Each Tablet, 1 EACH PO BID Prescribed by: MEHRAN SEGURA on 12/08/181451 Sulfamethoxazole/Trimethoprim 1 Each Tablet, 2 EACH PO BID Prescribed by: SRIDEVI KHAN on 12/22/182116 Patient Home Medication List Home Medication List Reviewed: Yes Review of Systems Review of Systems Constitutional: fever Respiratory: no symptoms reported Cardiovascular: no symptoms reported Gastrointestinal: no symptoms reported Genitourinary: no symptoms reported Musculoskeletal: see HPI Skin: see HPI Psychiatric/Neurological: No Symptoms Reported Endocrine: No Symptoms Reported Hematologic/Lymphatic: No Symptoms Reported Past Zqtczgn-Yjlqew-Nqazdw Hx Patient Social History Alcohol Use: Occasionally Uses Alcohol Beverage of Choice: Beer, Cheap Liquor Recreational Drug Use: Yes (THC) Drug of Choice: MARIJUANA Smoking Status: Current Everyday Smoker (1 PPD) Type Used: Cigarettes 2nd Hand Smoke Exposure: Yes Recent Foreign Travel: No Contact w/Someone Who Travel: No Recent Infectious Disease Expo: No Recent Hopitalizations: No Immunizations Up To Date Tetanus Booster (TDap): Less than 5yrs PED Vaccines UTD: Yes Seasonal Allergies Seasonal Allergies: Yes Past Medical History Surgeries: Yes (LEFT ELBOW FX/ORIF; RIGHT HAND TENDON REPAIR; BILATERAL JAW FX/WIRED 03/2018; I&D OF ABSCESSES) Orthopedic Respiratory: No Cardiac: No Neurological: No Reproductive Disorders: No Sexually Transmitted Disease: No HIV/AIDS: No Genitourinary: No Gastrointestinal: No Musculoskeletal: Yes (LEFT ELBOW FX; RIGHT HAND TENDON INJURY) Fractures Endocrine: No HEENT: Yes (BILATERAL JAW FX/WIRED 03/2018) Cancer: No Psychosocial: No Integumentary: Yes ("STAPH" INFECTIONS, PER PT) Recent Skin Changes Blood Disorders: No Family Medical History Psychiatric Problems Physical Exam Vital Signs Vital Signs - First Documented 12/25/18 07:20 Temp 96.4 Pulse 87 Resp 20 B/P (MAP) 125/93 (104) Pulse Ox 97 Capillary Refill : Less Than 3 Seconds General Appearance: WD/WN, no apparent distress, other (WEARING SHORTS ONLY. ) Cardiovascular: normal peripheral pulses, regular rate, rhythm, no murmur Respiratory: normal breath sounds Extremities: no pedal edema, normal capillary refill, other (LEFT LOWER LEG--1/2 CM SCABBED WOUND TO MEDIAL CALF WITH MODERATE AMOUNT OF SWELLING, AND DIFFUSE ERYTYEMA FROM ANKLE TO KNEE. NO AREAS OF FLUCTUANCE. NO DRAINAGE. NO ST REAKS. MOTOR/SENSORY/VASCULAR INTACT) Neurologic/Psychiatric: raisin washer II-XII nml as tested, no motor/sensory deficits, alert, normal mood/affect, oriented x 3 Skin: other ( ABOVE) Progress/Results/Core Measures Results/Orders Lab Results Laboratory Tests Test 12/25/18 07:05 12/25/18 07:33 Range/Units Erythrocyte Sedimentation Rate 28 H 0-15 MM/HR C-Reactive Protein High Sensitivity 5.29 H 0.00-0.50 MG/DL White Blood Count 7.2 4.3-11.0 10^3/uL Red Blood Count 4.78 4.35-5.85 10^6/uL Hemoglobin 14.7 13.3-17.7 G/DL Hematocrit 42 40-54 % Mean Corpuscular Volume 88 80-99 FL Mean Corpuscular Hemoglobin 31 25-34 PG Mean Corpuscular Hemoglobin Concent 35 32-36 G/DL Red Cell Distribution Width 13.1 10.0-14.5 % Platelet Count 192 130-400 10^3/uL Mean Platelet Volume 10.9 H 7.4-10.4 FL Neutrophils (%) (Auto) 56 42-75 % Lymphocytes (%) (Auto) 31 12-44 % Monocytes (%) (Auto) 10 0-12 % Eosinophils (%) (Auto) 3 0-10 % Basophils (%) (Auto) 0 0-10 % Neutrophils # (Auto) 4.0 1.8-7.8 X 10^3 Lymphocytes # (Auto) 2.2 1.0-4.0 X 10^3 Monocytes # (Auto) 0.7 0.0-1.0 X 10^3 Eosinophils # (Auto) 0.2 0.0-0.3 10^3/uL Basophils # (Auto) 0.0 0.0-0.1 10^3/uL Prothrombin Time 13.4 12.2-14.7 SEC INR Comment 1.0 0.8-1.4 Activated Partial Thromboplast Time 31 24-35 SEC Sodium Level 140 135-145 MMOL/L Potassium Level 3.9 3.6-5.0 MMOL/L Chloride Level 102 98-107 MMOL/L Carbon Dioxide Level 28 21-32 MMOL/L Anion Gap 10 5-14 MMOL/L Blood Urea Nitrogen 11 7-18 MG/DL Creatinine 0.87 0.60-1.30 MG/DL Estimat Glomerular Filtration Rate > 60 BUN/Creatinine Ratio 13 Glucose Level 103 70-105 MG/DL Lactic Acid Level 1.05 0.50-2.00 MMOL/L Calcium Level 10.0 8.5-10.1 MG/DL Corrected Calcium 9.7 8.5-10.1 MG/DL Total Bilirubin 0.6 0.1-1.0 MG/DL Aspartate Amino Transf (AST/SGOT) 25 5-34 U/L Alanine Aminotransferase (ALT/SGPT) 22 0-55 U/L Alkaline Phosphatase 60 40-136 U/L Total Protein 7.6 6.4-8.2 GM/DL Albumin 4.4 3.2-4.5 GM/DL Serum Alcohol < 10 <10 MG/DL My Orders Orders - RODRIGUEZ JACKSON DO Ed Iv/Invasive Line Start (12/25/18 07:18) Us Left Lower Ext [id number] (12/25/18 07:18) Alcohol (12/25/18 07:18) Cbc With Automated Diff (12/25/18 07:18) Comprehensive Metabolic Panel (12/25/18 07:18) Drug Screen Stat (Urine) (12/25/18 07:18) Lactic Acid Analyzer (12/25/18 07:18) Protime With Inr (12/25/18 07:18) Partial Thromboplastin Time (12/25/18 07:18) Ua Culture If Indicated (12/25/18 07:18) Blood Culture (12/25/18 07:18) Urine Culture (12/25/18 07:18) Vital Signs Adult Sepsis Patie Q15M (12/25/18 07:18) Remove Rings In Anticipation O (12/25/18 07:18) Vital Signs Adult Sepsis Patie Q15M (12/25/18 07:18) Piperacillin Sodium/Tazobactam (Zosyn Vi (12/25/18 07:30) Hs C Reactive Protein (12/25/18 07:51) Erythrocyte Sedimentation Rate (12/25/18 07:51) Medications Given in ED Current Medications Medications Dose Ordered Sig/Elaina Route Start Time Stop Time Status Last Admin Dose Admin Piperacillin Sod/ Tazobactam Sod 4.5 gm/Sodium Chloride 100 ml @ 200 mls/hr ONCE ONCE IV 12/25/18 07:30 12/25/18 07:59 DC 12/25/18 08:07 200 MLS/HR Vital Signs/I&O 12/25/18 07:20 Temp 96.4 Pulse 87 Resp 20 B/P (MAP) 125/93 (104) Pulse Ox 97 Blood Pressure Mean: 104 Progress Progress Note : Progress Note PT ADVISED TO NOT ATTEMPT TO OPEN/PICK/SQUEEZE THESE AT HOME, AND [facility] HE IS INSTRUCTED, ALSO ADVISED AGAINST USING "PRID" AND USE THE PRESCRIBED ANTIBIOTIC OINTMENT INSTRUCTED, IN ADDITION TO ALWAYS GET PRESCRIBED ANTIBIOTICS FILLED AND TAKE THEM PRESCRIBED. Diagnostic Imaging Comments ULTRASOUND--NO DRAINABLE ABSCESS, BUT HAS EDEMA C/W CELLULITIS--PER RADIOLOGIST REPORT AT 0858 Reviewed: Reviewed by Me Departure Communication (Admissions) 0900--SPOKE WITH DR. VAZQUEZ, UNIT SECRETARY FOR [facility]. ACCEPTS PT FOR ADMIT Impression Primary Impression: Cellulitis of left lower leg Additional Impression: NONCOMPLIANT WITH OUTPATIENT TREATMENT Disposition: ADMITTED INPATIENT Condition: Stable Admissions Decision to Admit Reason: Admit from ER (General) Decision to Admit/Date: Dec 25, 2018 Time/Decision to Admit Time: 09:00 Departure-Patient Inst. Referrals: [facility] (PCP/Family) Primary Care Physician RODRIGUEZ JACKSON DO Dec 25, 2018 07:36
[2018-12-25 07:47] LABS: BASOPHILS % (AUTO) 0 % (0-10); EOSINOPHILS # (AUTO) 0.2 10^3/uL (0.0-0.3); EOSINOPHILS % (AUTO) 3 % (0-10); HEMATOCRIT 42 % (40-54); HEMOGLOBIN 14.7 G/DL (13.3-17.7); LYMPHOCYTES # (AUTO) 2.2 X 10^3 (1.0-4.0); LYMPHOCYTES % (AUTO) 31 % (12-44); MEAN CORPUSCULAR HEMOGLOBIN 31 PG (25-34); MEAN CORPUSCULAR HGB CONC 35 G/DL (32-36); MEAN CORPUSCULAR VOLUME 88 FL (80-99); MEAN PLATELET VOLUME 10.9 FL (7.4-10.4); MONOCYTES # (AUTO) 0.7 X 10^3 (0.0-1.0); MONOCYTES % (AUTO) 10 % (0-12); NEUTROPHILS % (AUTO) 56 % (42-75); PLATELET COUNT 192 10^3/uL (130-400); RED CELL DISTRIBUTION WIDTH 13.1 % (10.0-14.5); WHITE BLOOD COUNT 7.2 10^3/uL (4.3-11.0)
[2018-12-25 07:58] LABS: PROTHROMBIN TIME PATIENT 13.4 SEC (12.2-14.7)
[2018-12-25 08:04] LABS: ALANINE AMINOTRANSFERASE 22 U/L (0-55); ALBUMIN 4.4 GM/DL (3.2-4.5); ALKALINE PHOSPHATASE 60 U/L (40-136); BILIRUBIN,TOTAL 0.6 MG/DL (0.1-1.0); BUN/CREATININE RATIO 13; CARBON DIOXIDE 28 MMOL/L (21-32); CHLORIDE 102 MMOL/L (98-107); CREATININE SERUM 0.87 MG/DL (0.60-1.30); GFR ESTIMATED > 60; GLUCOSE 103 MG/DL (70-105); POTASSIUM 3.9 MMOL/L (3.6-5.0); SODIUM 140 MMOL/L (135-145); TOTAL PROTEIN 7.6 GM/DL (6.4-8.2)
--- NOTE | 2018-12-25 08:47 | Diagnostic Imaging Report ---
INDICATION: Left lower extremity pain and swelling. COMPARISON: None available. TECHNIQUE: Targeted sonographic imaging of the left lower leg was performed in the area of dermal injury. FINDINGS AND IMPRESSION: 1. No loculated fluid collection that would indicate drainable abscess. 2. There is hypoechoic linear material at the site of dermal laceration and extending within the subcutaneous tissues, which is most suggestive of edema and/or cellulitis. Dictated by: Dictated on workstation # [id number]
--- OUTSIDE RECORDS SUMMARY | 2018-12-25 09:15 | XMS REPORT | Continuity of Care Document ---
Author Organization Unknown Address Unknown Allergies Active Description Code Type Severity Reaction Onset Reported/Identified Relationship to Patient Clinical Status Yes NKANo Known Allergies NKA Miscellaneous Allergy Mild N/A 07/31/2009 Yes ketorolac [id number] Drug Allergy Mild N/A 02/26/2018 Yes vancomycin [id number] Drug Allergy Mild N/A 02/26/2018 Medications There [...] LOCALIZED SWELLING, MASS AND LUMP, HEAD 11/12/2018 [place] , RODRIGUEZ K Ot Z88.1 ALLERGY STATUS TO OTHER ANTIBIOTIC AGENT 11/12/2018 [place] , RODRIGUEZ K Ot Z98.890 OTHER SPECIFIED POSTPROCEDURAL STATES 11/12/2018 [place] , RODRIGUEZ K Ot F10.10 ALCOHOL ABUSE, UNCOMPLICATED 11/12/2018 [place] , RODRIGUEZ K Ot F17.210 NICOTINE DEPENDENCE, CIGARETTES, UNCOMPL 11/12/2018 [place] JONATHAN RIVASA K Ot K04.7 PERIAPICAL ABSCESS WITHOUT SINUS 11/12/2018 [place] RODRIGUEZ K Ot L02.01 CUTANEOUS ABSCESS OF FACE 11/12/2018 [place] RODRIGUEZ K Ot L03.211 CELLULITIS OF FACE 11/12/2018 [place] JONATHAN RIVASA K Ot R22.0 LOCALIZED SWELLING, MASS AND LUMP, HEAD 11/12/2018 [place] RODRIGUEZ K Ot Z88.1 ALLERGY STATUS TO OTHER ANTIBIOTIC AGENT 11/12/2018 [place] , RODRIGUEZ K Ot Z98.890 OTHER SPECIFIED [...] Procedures Code Description Performed By Performed On 7L3TSTN DRAINAGE OF FINGER NAIL, EXTERNAL APPROA 02/26/2018 [...] - 02/25/18 23:00 QUANTITY OF GROWTH Isolated [facility] Bacterial blood culture [id number] [facility] Gram stain microscopy - 02/25/18 23:07 Gram stain microscopy REPORTED 02-26-2018, 1605 [facility] Bacteria identification in wound by culture - 02/25/18 23:07 Bacteria identification in wound by culture [facility] QUANTITY OF GROWTH . [facility] Bacterial blood culture - 02/25/18 23:39 QUANTITY OF GROWTH . [facility] Bacterial blood culture SEE COMMEN [facility] Complete blood count (CBC) with [...] Status Pt. Type Provider Facility Loc./Unit Complaint [id number] 12/22/2018 20:40:00 12/22/2018 21:20:00 DIS Outpatient SRIDEVI KHAN MD [facility] ER STAPH INFECTION [id number] 12/08/2018 14:29:00 12/08/2018 14:55:00 DIS Emergency MEHRAN SEGURA APRN [facility] ER STAPH INFECTION;CHEST PAIN [id number] 11/11/2018 13:40:00 11/11/2018 17:40:00 DIS Outpatient SRIDEVI KHAN MD [facility] ER LIP SWELLING [id number] 11/10/2018 21:45:00 11/11/2018 00:08:00 DIS Outpatient RODRIGUEZ JACKSON DO [facility] ER LIP SWELLING [id number] 11/10/2018 19:10:00 11/10/2018 19:48:00 DIS Outpatient RODRIGUEZ JACKSON DO [facility] ER R SIDE LIP/JAW SWELLING [id number] 04/17/2018 07:36:00 04/17/2018 08:46:00 DIS Emergency JAMAAL DONG MD [facility] ER JAW INJ [id number] 04/14/2018 22:26:00 04/15/2018 00:05:00 DIS Emergency ERIN SHAH, SRIDEVI Rodney [facility] ER JAW INJURY [id number] 02/26/2018 01:16:00 02/27/2018 15:50:00 DIS Inpatient KOKO JENKINS DO [facility] 4TH SEPSIS,FINGER ABSCESS,CRUSH INJURY
[2018-12-25 10:00] VITALS: BP 113/76
--- NOTE | 2018-12-25 10:00 | NUR ---
ADMITTED TO ROOM 408 FROM ED. ALERT AND ORIENTED. DENIES PAIN. HL PATENT LT AC. WOUND NOTED INSTRUMENTAL MUSICIAN ON LLE. SEROSANG DRAINAGE, SLIGHT AMOUNT. AREA REDDENED. SEE ASSESSMENT.
[2018-12-25] MEDS ORDERED: ACETAMINOPHEN 500 MG TAB (TYLENOL) PO PRN (10:15)
--- NOTE | 2018-12-25 10:20 | NUR ---
DR. CELIS NOTIFIED OF CONSULT.
[2018-12-25] MEDS ORDERED: KETOROLAC 30 MG/ML VIAL IVP PRN (10:30)
--- NOTE | 2018-12-25 10:45 | NUR ---
DR. CELIS TO SEE PT.
[2018-12-25] MEDS ORDERED: ASPI325T32 PO (11:04)
--- NOTE | 2018-12-25 11:07 | NUR ---
SPOKE WITH PATIENT WELL GOING THROUGH THE EXTERNAL MED HISTORY. BACTRIM AND MUPIROCIN WERE SENT TO [facility] ON 12-08-2018 BUT THEY WERE NEVER PICKED UP OTC MEDICATIONS: ASPIRIN 325MG- 2 TS D
--- NOTE | 2018-12-25 11:15 | NUR ---
SHOWERED PER DR. CELIS REQUEST. WARM COMPRESS TO LLE. REFUSED TO PROVIDE URINE FOR UA OR DRUG SCREEN. DR. VAZQUEZ NOTIFIED.
--- NOTE | 2018-12-25 11:42 | History & Physical-Hospitalist ---
History of Present Illness HPI/Chief Complaint Chief complaint: Left lower extremity cellulitis History of present illness: This is a 23-year-old white male clinic patient of [facility] who presented after not taking antibiotics that were prescribed 2 days before for cellulitis of the left lower extremity with ulceration. He thinks he got bit by a ochoa spider. 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 He does smoke few cigarettes a day does not drink alcohol and denies any drug use but refuses to give a specimen to confirm that. Dr. Valladares assessed the patient felt like we needed to just monitor and no debridement was necessary. Patient was found walking around downstairs with his hospital gown with no underwear on acting oddly and left in a car when someone picked him up so police was called because he has an IV in so likely he will use that for illicit drug intravenous use. Source: patient, old records Exam Limitations: clinical condition Date Seen 12/25/18 Time Seen by a Provider: 11:45 Attending Physician Candida Lomas DO [facility] [place] Referring Physician Date of Admission Dec 25, 2018 at 09:09 Home Medications & Allergies Home Medications Reviewed patient Home Medication Reconciliation performed by pharmacy medication reconciliations communication electronic technician and/or nursing. Patients Allergies have been reviewed. Allergies Allergies Coded Allergies vancomycin (Verified Allergy, Mild, 02/26/18) Itching Past Jccnrgp-Paiisb-Vcwygm Hx Past Med/Social Hx: Reviewed Nursing Past Med/Soc Hx, Reviewed and Corrections made Patient Social History Marrital Status: single Employed/Student: employed ([employer]) Alcohol Use: Occasionally Uses Alcohol Beverage of Choice: Beer, Cheap Liquor Recreational Drug Use: Yes (THC) Drug of Choice: MARIJUANA Smoking Status: Current Everyday Smoker (1 PPD) Type Used: Cigarettes 2nd Hand Smoke Exposure: Yes Recent Foreign Travel: No Contact w/other who traveled: No Recent Hopitalizations: No Recent Infectious Disease Expo: No Immunizations Up To Date Tetanus Booster (TDap): Less than 5yrs Pediatric: Yes Seasonal Allergies Seasonal Allergies: Yes Past Medical History Surgeries: Orthopedic Reproductive: No Sexually Transmitted Disease: No HIV/AIDS: No Musculoskeletal: Fractures Skin/Integumentary: Recent Skin Changes History of Blood Disorders: No Family History Psychiatric Problems Review of Systems Constitutional: see HPI Physical Exam Physical Exam Vital Signs Vital Signs - First Documented 12/25/18 12/25/18 07:20 10:00 Temp 96.4 Pulse 87 Resp 20 B/P (MAP) 125/93 (104) Pulse Ox 97 O2 Delivery Room Air Capillary Refill : Less Than 3 Seconds Height, Weight, BMI Height: 5'9.00" Weight: 146lbs. 0.0oz. 66.525233tn; 22.3 BMI Method:Stated General Appearance: No Apparent Distress, WD/WN, Chronically ill Eyes: Right Eye Normal Inspection, Right Eye PERRL HEENT: PERRL/EOMI, Normal ENT Inspection, Pharynx Normal, Moist Mucous Membranes Neck: Full Range of Motion, Normal Inspection, Non Tender Respiratory: Chest Non Tender, Lungs Clear, Normal Breath Sounds, No Accessory Muscle Use, No Respiratory Distress Cardiovascular: Regular Rate, Rhythm, No Edema, No Gallop, No JVD, No Murmur, Normal Peripheral Pulses Gastrointestinal: Normal Bowel Sounds, No Organomegaly, No Pulsatile Mass, Non Tender, Soft Back: Normal Inspection, No CVA Tenderness, No Vertebral Tenderness Extremity: Normal Capillary Refill, Normal Inspection, Normal Range of Motion, Non Tender, No Calf Tenderness, No Pedal Edema, Other (left lower leg with cellu litis and ulceration) Neurologic/Psychiatric: Alert, Oriented x3, No Motor/Sensory Deficits, Normal Mood/Affect Skin: Normal Color, Warm/Dry Lymphatic: No Adenopathy Results Results/Procedures Labs Laboratory Tests 12/25/18 07:33 Patient resulted labs reviewed. Assessment/Plan Admission Diagnosis Assessment: Left leg ulcer with cellulitis Smoker Presumed XU Non-compliance Plan: Patient left AMA with heplock likely will be used for intravenous drug abuse injections Admission Status: Observation Diagnosis/Problems Diagnosis/Problems (1) Cellulitis Status: Acute Qualifiers: Site of cellulitis: unspecified site Qualified Codes: L03.90 - Cellulitis, unspecified (2) Left against medical advice Status: Acute CANDIDA LOMAS DO Dec 25, 2018 11:42
--- NOTE | 2018-12-25 12:30 | NUR ---
CALLED BY STAFF FROM OTHER FLOORS. STATED MALE PATIENT WITH NO PANTS ON WANDERING AROUND FIRST FLOOR. SWITCH OPERATOR AND UC OFF FLOOR TO LOOK FOR PT. NURSE MARINE STRUCTURAL WELDER JOYCE NOTIFIED. PT NOTED WALKING [facility] OFF OF HOSPITAL PROPERTY. BELONGINGS OF SOCKS AND SHORTS FOUND IN PT ROOM. PT STILL HAS IV ACCESS. [place] [employer] NOTIFIED PER NURSE MARINE STRUCTURAL WELDER REQUEST PT HAS IV ACCESS. DR. VAZQUEZ NOTIFIED.
--- NOTE | 2018-12-25 12:50 | NUR ---
PT AMA. ASSESSMENT NOT DONE PRIOR TO PT LEAVING HOSPITAL.
--- NOTE | 2018-12-25 13:29 | Consultation (Surgery) ---
History of Present Illness History of Present Illness Patient Consulted On(ventura/time) 12/25/18 13:24 Time Seen by Provider: 10:41 History of Present Illness Surgery asked to consult regarding LLE cellulitis. HPI per ED: PT ARRIVES VIA POV WITH 2 FEMALES PT WAS IN ER EARLIER, BUT REPEATEDLY WAS NOT IN WAITING ROOM WHEN RN TRIED TO BRING HIM BACK TO A ROOM PT C/O INFECTION TO LEFT LOWER LEG HAS BEEN PRESENT FOR A COUPLE OF WEEKS PT STATES HE CUT IT OPEN WITH A KNIFE AT HOME, ON MORE THAN ONE OCCASION, WITHOUT RESULTS, AND HAS BEEN PUTTING OTC "PRID" ON IT PT WAS SEEN HERE 12/08/18 FOR SAME--ALSO HAD ONE ON HIS LEFT BACK AT THAT TIME--PT HAD I&D OF BOTH AREAS AT THAT TIME, AND WAS GIVEN RX'S FOR MUPIROCIN + BACTRIM --PT DID NOT FILL RX'S PT HERE 12/22/18 AGAIN FOR SAME PROBLEM ON HIS LEFT LOWER LEG--I&D PERFORMED AGAIN AND AGAIN WAS GIVEN RX'S FOR MUPIROCIN + BACTRIM, WHICH PT DID NOT GET FILLED EITHER PT CONTINUES TO PUT "PRID" ON THE AREA, AND CONTINUES TO POKE AND TRY TO "CUT" THE AREA OPEN PT PRESENTS TODAY FOR INCREASED PAIN AND REDNESS TO THE AREA HAS HAD SUBJECTIVE FEVER FOR THE LAST 3 DAYS PT DID NOT ATTEMPT TO FOLLOW UP WITH ANYONE, INSTRUCTED. PT WAS HERE 11/10 AND 11/11 FOR SIMILAR INFECTION TO HIS UPPER LIP PT ALSO HOSPITALIZED 02/2018 FOR STAPH INFECTION OF FINGER PT HAS HAD MULTIPLE VISITS HERE, AND HAS SIGNED OUT AMA OR LWBS MULTIPLE TIMES, HAS BEEN NON-COMPLIANT WITH MEDICATIONS AND FOLLOW UP'S When I spoke to pt he stated he thought the redness was getting better and it was not really draining. Pain is moderate, but controlled. Allergies and Home Medications Allergies Coded Allergies: vancomycin (Verified Allergy, Mild, 02/26/18) Itching Home Medications Aspirin 325 Mg Tablet.dr, 650 MG PO DAILY, (Reported) Patient Home Medication List Home Medication List Reviewed: Yes Past Ietzmls-Eauqfc-Fqqdik Hx Patient Social History Alcohol Use: Occasionally Uses Recreational Drug Use: Yes (THC) Drug of Choice: MARIJUANA Smoking Status: Current Everyday Smoker (1 PPD) Type Used: Cigarettes 2nd Hand Smoke Exposure: Yes Recent Foreign Travel: No Contact w/Someone Who Travel: No Recent Infectious Disease Expo: No Recent Hopitalizations: No Immunizations Up To Date Tetanus Booster (TDap): Less than 5yrs PED Vaccines UTD: Yes Seasonal Allergies Seasonal Allergies: Yes Surgeries History of Surgeries: Yes (LEFT ELBOW FX/ORIF; RIGHT HAND TENDON REPAIR; BILATERAL JAW FX/WIRED 03/2018; I&D OF ABSCESSES) Surgeries: Orthopedic Respiratory History of Respiratory Disorde: No Cardiovascular History of Cardiac Disorders: No Neurological History of Neurological Disord: No Reproductive System Hx Reproductive Disorders: No Sexually Transmitted Disease: No HIV/AIDS: No Genitourinary History of Genitourinary Disor: No Gastrointestinal History of Gastrointestinal Di: No Musculoskeletal History of Musculoskeletal Dis: Yes (LEFT ELBOW FX; RIGHT HAND TENDON INJURY) Musculoskeletal Disorders: Fractures Endocrine History of Endocrine Disorders: No HEENT History of HEENT Disorders: Yes (BILATERAL JAW FX/WIRED 03/2018) Cancer History of Cancer: No Psychosocial History of Psychiatric Problem: No Integumentary History of Skin or Integumenta: Yes ("STAPH" INFECTIONS, PER PT) Skin/Integumentary Disorders: Recent Skin Changes Blood Transfusions History of Blood Disorders: No Family Medical History Significant Family History: CAD Over 55 Years Old (Father has had NC), Psychiatric Problems Review of Systems-General Constitutional: chills; No diaphoresis, No malaise, No weakness EENTM: No blurred vision, No double vision, No mouth pain, No mouth swelling, No epistaxis Respiratory: No dyspnea on exertion, No hemoptysis, No short of breath Cardiovascular: No chest pain, No edema, No palpitations Gastrointestinal: No abdominal pain, No nausea, No vomiting Genitourinary: No dysuria, No frequency, No hematuria Musculoskeletal: joint pain, muscle pain, muscle stiffness Skin: see HPI Psychiatric/Neurological: Denies Anxiety, Denies Depressed, Denies Seizure, Denies Tremors Other pt denies any hx of abnormal bleeding or bruising, no heat or cold intolerance Physical Exam-General Problems Physical Exam Vital Signs Vital Signs - First Documented 12/25/18 12/25/18 07:20 10:00 Temp 96.4 Pulse 87 Resp 20 B/P (MAP) 125/93 (104) Pulse Ox 97 O2 Delivery Room Air Capillary Refill : Less Than 3 Seconds General Appearance: WD/WN, no apparent distress Eyes: Bilateral Eye PERRL, Bilateral Eye EOMI HEENT: pharynx normal; No scleral icterus (R), No scleral icterus (L) Neck: non-tender, full range of motion, supple, normal inspection Respiratory: chest non-tender, lungs clear, normal breath sounds, no respi ratory distress, no accessory muscle use Cardiovascular: regular rate, rhythm, no edema, no murmur Gastrointestinal: normal bowel sounds, non tender, soft, no organomegaly, no pulsatile mass Back: no CVA tenderness, no vertebral tenderness Extremities: normal range of motion, no calf tenderness, normal capillary refill, other (Left leg medial to tibia is large area of erythema, appx 10cm no fluctuance and nothing draining from 5mm opening) Neurologic/Psychiatric: rn anesthesiology II-XII nml as tested, no motor/sensory deficits, alert, normal mood/affect, oriented x 3 Skin: normal color, warm/dry Lymphatic: no adenopathy (neck, axilla ?? small nodes left inguinal) Data Review Labs Laboratory Tests 12/25/18 07:05: Erythrocyte Sedimentation Rate 28H, C-Reactive Protein High Sensitivity 5.29H 12/25/18 07:33: White Blood Count 7.2, Red Blood Count 4.78, Hemoglobin 14.7, Hematocrit 42, Mean Corpuscular Volume 88, Mean Corpuscular Hemoglobin 31, Mean Corpuscular Hemoglobin Concent 35, Red Cell Distribution Width 13.1, Platelet Count 192, Mean Platelet Volume 10.9H, Neutrophils (%) (Auto) 56, Lymphocytes (%) (Auto) 31, Monocytes (%) (Auto) 10, Eosinophils (%) (Auto) 3, Basophils (%) (Auto) 0, Neutrophils # (Auto) 4.0, Lymphocytes # (Auto) 2.2, Monocytes # (Auto) 0.7, Eosinophils # (Auto) 0.2, Basophils # (Auto) 0.0, Prothrombin Time 13.4, INR Comment 1.0, Activated Partial Thromboplast Time 31, Sodium Level 140, Potassium Level 3.9, Chloride Level 102, Carbon Dioxide Level 28, Anion Gap 10, Blood Urea Nitrogen 11, Creatinine 0.87, Estimat Glomerular Filtration Rate > 60, BUN/Creatinine Ratio 13, Glucose Level 103, Lactic Acid Level 1.05, Calcium Level 10.0, Corrected Calcium 9.7, Total Bilirubin 0.6, Aspartate Amino Transf (AST/SGOT) 25, Alanine Aminotransferase (ALT/SGPT) 22, Alkaline Phosphatase 60, Total Protein 7.6, Albumin 4.4, Serum Alcohol < 10 Assessment/Plan Assessment/Plan Assessment/Plan LLE Cellulitis Plan is IV abx, oral feedings as tolerated; will have pt take a chlorhexadine shower and use warm/wet compresses over affected area. Pt thinks he may have another one developing in the left axilla; shower and abx should control this. ALYSSA CELIS DO Dec 25, 2018 13:29
[2018-12-25] MEDS ORDERED: PIPERACILLIN/TAZO 4.5 GM/NS 100 ML IV SCH ×2 (14:00)
== END 2018-12-25 12:50 | disposition left against medical advice (07) ==
LOC: EDUNIT# 06:59 → ER 07:02 → 4TH 09:09
PROVIDERS: ADMIT Internal Medicine; ATTEND Internal Medicine
DX: L03.116 Cellulitis of left lower limb (principal); F17.210 Nicotine dependence, cigarettes, uncomplicated; Z91.19 Patient's noncompliance with other medical treatment and regimen; Z53.21 Procedure and treatment not carried out due to patient leaving prior to being seen by health care provider
CPT/HCPCS: 36415; 76881; 80053; 80320; 83605; 85025; 85610; 85652; 85730; 86141; 87040; 96365; G0378

== ENCOUNTER 2019-03-16 14:40 | Emergency (ER) | payer SELFPAY ==
[~2019-03-16] VITALS: Ht 175.2 cm; Wt 70.5 kg
[~2019-03-16 14:40] MED LIST changes: +ASPI325T32 PO
--- NOTE | 2019-03-16 15:45 | NUR ---
PT MOVED TO ROOM 07 FOR FURTHER WORKUP.
--- NOTE | 2019-03-16 15:56 | ED Lower Extremity ---
General Chief Complaint: Lower Extremity Stated Complaint: STAPH INFECTION IN LEG Nursing Triage Note: Pt reports redness with swelling and pain in left knee. He reports history of staph infection. Nursing Sepsis Screen: No Definite Risk Source: patient Exam Limitations: no limitations History of Present Illness Date Seen by Provider: Mar 16, 2019 Time Seen by Provider: 15:52 Initial Comments To ER with reports of staph infection in his left leg. He has swelling redness and pain to the left knee for the past 3-4 days. No fevers or chills. Onset: yesterday Severity: moderate Pain/Injury Location: left knee Method of Injury: unknown Modifying Factors: Worse With Movement Allergies and Home Medications Allergies Coded Allergies: vancomycin (Verified Allergy, Mild, 02/26/18) Itching Home Medications Aspirin 325 Mg Tablet.dr, 650 MG PO DAILY, (Reported) Patient Home Medication List Home Medication List Reviewed: Yes Review of Systems Constitutional: see HPI EENTM: see HPI Respiratory: no symptoms reported Cardiovascular: no symptoms reported Genitourinary: no symptoms reported Musculoskeletal: see HPI Skin: no symptoms reported Psychiatric/Neurological: No Symptoms Reported Past Pntoyek-Iuowty-Mfmetq Hx Patient Social History Alcohol Use: Denies Use Alcohol Beverage of Choice: Beer, Cheap Liquor Recreational Drug Use: Yes Drug of Choice: Marijuana Smoking Status: Current Everyday Smoker Type Used: Cigarettes 2nd Hand Smoke Exposure: No Recent Foreign Travel: No Contact w/Someone Who Travel: No Recent Infectious Disease Expo: No Recent Hopitalizations: No Immunizations Up To Date Tetanus Booster (TDap): Less than 5yrs PED Vaccines UTD: Yes Seasonal Allergies Seasonal Allergies: Yes Past Medical History Surgeries: Yes Orthopedic Respiratory: No Currently Using CPAP: No Currently Using BIPAP: No Cardiac: No Neurological: No Reproductive Disorders: No Sexually Transmitted Disease: No HIV/AIDS: No Genitourinary: No Gastrointestinal: No Musculoskeletal: Yes (LEFT ELBOW FX; RIGHT HAND TENDON INJURY) Fractures Endocrine: No HEENT: Yes (BILATERAL JAW FX/WIRED 03/2018) Cancer: No Psychosocial: No Integumentary: Yes ("STAPH" INFECTIONS, PER PT) Recent Skin Changes Blood Disorders: No Family Medical History CAD Over 55 Years Old, Psychiatric Problems Physical Exam Vital Signs Vital Signs - First Documented 03/16/19 15:09 Temp 36.8 Pulse 118 Resp 18 B/P (MAP) 126/77 (93) Pulse Ox 96 Capillary Refill : Less Than 3 Seconds Height, Weight, BMI Height: 5'9.00" Weight: 146lbs. 0.0oz. [id number]; 22.00 BMI Method:Stated General Appearance: WD/WN, no apparent distress HEENT: PERRL/EOMI, normal ENT inspection Respiratory: no respiratory distress, no accessory muscle use Hips: bilateral hip non-tender, bilateral hip normal inspection, bilateral hip normal range of motion Legs: bilateral leg non-tender, bilateral leg normal inspection, bilateral leg normal range of motion Knees: left knee other (left knee is unable to be fully straightened because of pain when doing so. There is a 2-3 cm area of erythema/induration to the superior lateral border of the patella with drainage. At the area of the patellar tendon there is a palpable ballottement. An area of skin without overlying erythema was anesthetized, then an 18-gauge 1-1/2 inch needle was inserted. Unable to aspirate any fluid. This area was selected as the overlying skin was not infected at this site, there was no erythema.) Ankles: bilateral ankle non-tender, bilateral ankle normal inspection, bilateral ankle normal range of motion Feet: bilateral foot non-tender, bilateral foot normal inspection, bilateral foot normal range of motion Neurologic/Psychiatric: alert, normal mood/affect, oriented x 3 Skin: normal color, warm/dry Progress/Results/Core Measures Results/Orders Lab Results Laboratory Tests Test 03/16/19 16:33 Range/Units White Blood Count 9.8 4.3-11.0 10^3/uL Red Blood Count 4.76 4.35-5.85 10^6/uL Hemoglobin 14.6 13.3-17.7 G/DL Hematocrit 42 40-54 % Mean Corpuscular Volume 88 80-99 FL Mean Corpuscular Hemoglobin 31 25-34 PG Mean Corpuscular Hemoglobin Concent 35 32-36 G/DL Red Cell Distribution Width 13.7 10.0-14.5 % Platelet Count 175 130-400 10^3/uL Mean Platelet Volume 11.1 H 7.4-10.4 FL Neutrophils (%) (Auto) 64 42-75 % Lymphocytes (%) (Auto) 27 12-44 % Monocytes (%) (Auto) 8 0-12 % Eosinophils (%) (Auto) 2 0-10 % Basophils (%) (Auto) 0 0-10 % Neutrophils # (Auto) 6.2 1.8-7.8 X 10^3 Lymphocytes # (Auto) 2.6 1.0-4.0 X 10^3 Monocytes # (Auto) 0.7 0.0-1.0 X 10^3 Eosinophils # (Auto) 0.2 0.0-0.3 10^3/uL Basophils # (Auto) 0.0 0.0-0.1 10^3/uL Sodium Level 140 135-145 MMOL/L Potassium Level 4.7 3.6-5.0 MMOL/L Chloride Level 104 98-107 MMOL/L Carbon Dioxide Level 30 21-32 MMOL/L Anion Gap 6 5-14 MMOL/L Blood Urea Nitrogen 11 7-18 MG/DL Creatinine 0.81 0.60-1.30 MG/DL Estimat Glomerular Filtration Rate > 60 BUN/Creatinine Ratio 14 Glucose Level 91 70-105 MG/DL Calcium Level 10.0 8.5-10.1 MG/DL Corrected Calcium 9.6 8.5-10.1 MG/DL Total Bilirubin 0.5 0.1-1.0 MG/DL Aspartate Amino Transf (AST/SGOT) 22 5-34 U/L Alanine Aminotransferase (ALT/SGPT) 15 0-55 U/L Alkaline Phosphatase 71 40-136 U/L Total Protein 8.0 6.4-8.2 GM/DL Albumin 4.5 3.2-4.5 GM/DL My Orders Orders - MEHRAN SEGURA APRN Cbc With Automated Diff (03/16/19 16:03) Comprehensive Metabolic Panel (03/16/19 16:03) Blood Culture (03/16/19 16:03) Ed Iv/Invasive Line Start (03/16/19 16:03) Fentanyl Injection (Sublimaze Injection (03/16/19 16:15) Clindamycin 900 Mg/50 Ml Ivpb (Cleocin P (03/16/19 16:15) Medications Given in ED Current Medications Medications Dose Ordered Sig/Elaina Route Start Time Stop Time Status Last Admin Dose Admin Fentanyl Citrate 50 mcg ONCE ONCE IVP 03/16/19 16:15 03/16/19 16:16 DC 03/16/19 16:38 50 MCG Vital Signs/I&O 03/16/19 15:09 Temp 36.8 Pulse 118 Resp 18 B/P (MAP) 126/77 (93) Pulse Ox 96 Blood Pressure Mean: 93 Departure Communication (Admissions) 1626-patient was in the MRI department when he decided to refuse the MRI stating"Im just trying not to get angry" 1715-patient states he just wants to go home, I recommended admission to the hospital for IV antibiotics and consult orthopedics to evaluate for a septic joint, he states he'll just go on home Impression Primary Impression: Cellulitis Qualified Codes: L03.90 - Cellulitis, unspecified Disposition: 07 AGAINST MEDICAL ADVICE Condition: Against Medical Advice Departure-Patient Inst. Decision time for Depature: 17:19 Referrals: [facility] [place] Primary Care Physician Patient Instructions: NO INSTRUCTIONS GIVEN Scripts Sulfamethoxazole/Trimethoprim (Bactrim Ds Tablet) 1 Each Tablet 1 EACH PO BID, #30 TAB Prov: MEHRAN SEGURA APRN 03/16/19 Cephalexin (Keflex) 500 Mg Capsule 500 MG PO QID, #28 CAP Prov: MEHRAN SEGURA BACK CLOSER 03/16/19 MEHRAN SEGURA BACK CLOSER Mar 16, 2019 15:56
[2019-03-16] MEDS ORDERED: fentaNYL INJECTION 100 MCG/2 ML AMP IVP ONE (16:15)
[2019-03-16] MEDS ORDERED: CLINDAMYCIN 900 MG/50 ML IVPB 50 ML IV ONE (16:15)
[2019-03-16 16:51] LABS: BASOPHILS % (AUTO) 0 % (0-10); EOSINOPHILS # (AUTO) 0.2 10^3/uL (0.0-0.3); EOSINOPHILS % (AUTO) 2 % (0-10); HEMATOCRIT 42 % (40-54); HEMOGLOBIN 14.6 G/DL (13.3-17.7); LYMPHOCYTES # (AUTO) 2.6 X 10^3 (1.0-4.0); LYMPHOCYTES % (AUTO) 27 % (12-44); MEAN CORPUSCULAR HEMOGLOBIN 31 PG (25-34); MEAN CORPUSCULAR HGB CONC 35 G/DL (32-36); MEAN CORPUSCULAR VOLUME 88 FL (80-99); MEAN PLATELET VOLUME 11.1 FL (7.4-10.4); MONOCYTES # (AUTO) 0.7 X 10^3 (0.0-1.0); MONOCYTES % (AUTO) 8 % (0-12); NEUTROPHILS # (AUTO) 6.2 X 10^3 (1.8-7.8); NEUTROPHILS % (AUTO) 64 % (42-75); PLATELET COUNT 175 10^3/uL (130-400); RED CELL DISTRIBUTION WIDTH 13.7 % (10.0-14.5); WHITE BLOOD COUNT 9.8 10^3/uL (4.3-11.0)
[2019-03-16 17:00] LABS: ALANINE AMINOTRANSFERASE 15 U/L (0-55); ALBUMIN 4.5 GM/DL (3.2-4.5); ALKALINE PHOSPHATASE 71 U/L (40-136); BILIRUBIN,TOTAL 0.5 MG/DL (0.1-1.0); BUN/CREATININE RATIO 14; CARBON DIOXIDE 30 MMOL/L (21-32); CHLORIDE 104 MMOL/L (98-107); CREATININE SERUM 0.81 MG/DL (0.60-1.30); GFR ESTIMATED > 60; GLUCOSE 91 MG/DL (70-105); POTASSIUM 4.7 MMOL/L (3.6-5.0); SODIUM 140 MMOL/L (135-145)
[2019-03-16] MEDS ORDERED: CEPH-507 PO (17:19)
[2019-03-16] MEDS ORDERED: SULF1TAB35 PO (17:19)
[2019-03-16 17:50] VITALS: BP 120/79
== END 2019-03-16 17:44 | disposition left against medical advice (07) ==
LOC: EDUNIT# 14:40 → ER 14:41
DX: L03.116 Cellulitis of left lower limb (principal); F17.210 Nicotine dependence, cigarettes, uncomplicated; Z88.1 Allergy status to other antibiotic agents; Z79.82 Long term (current) use of aspirin
CPT/HCPCS: 10060; 36415; 80053; 85025; 87040; 96365; 96375

== ENCOUNTER 2020-11-19 21:06 | Emergency (ER) | payer SELFPAY ==
[~2020-11-19 21:06] MED LIST changes: +CEPH-507 PO; -CLIN300C11 PO; +CLIN300C12 PO
[2020-11-19 21:15] VITALS: BP 132/86
[2020-11-19] MEDS ORDERED: AZITHROMYCIN 250 MG TAB (ZITHROMAX) PO ONE (21:45)
[2020-11-19] MEDS ORDERED: LIDOCAINE 1% INJ 20 ML 20 ML VIAL INJ ONE (21:45)
[2020-11-19] MEDS ORDERED: cefTRIAXone 500 MG/1.43 ML vial (IM ONLY) IM ONE (21:45)
[2020-11-19 21:49] LABS: BILIRUBIN,URINE NEGATIVE (NEGATIVE); CLARITY,URINE CLEAR; COLOR,URINE YELLOW; GLUCOSE, URINE (UA) NEGATIVE (NEGATIVE); KETONES,URINE NEGATIVE (NEGATIVE); LEUKOCYTE ESTERASE ,URINE NEGATIVE (NEGATIVE); NITRITE,URINE NEGATIVE (NEGATIVE); PROTEIN,URINE NEGATIVE (NEGATIVE)
[2020-11-19 21:57] LABS: BACTERIA,URINE NEGATIVE /HPF; SQUAMOUS EPITHELIAL CELL,UR RARE /HPF
--- NOTE | 2020-11-19 21:57 | ED GU-Male ---
General Chief Complaint: Male Reproductive Stated Complaint: BURNING WITH URINATION Nursing Triage Note: TO ED VIA POV AND AMBULATORY TO ROOM 6. STATES HE JUST LEARNED HIS GIRLFRIEND HAS HERPES AND NOW HE NOTICES BURNING WITH EJACULATION. Source: patient Exam Limitations: no limitations History of Present Illness Date Seen by Provider: November 19, 2020 Time Seen by Provider: 21:24 Initial Comments Patient to the ER by private conveyance from home with his significant other and chief complaint that for the past day or 2 he has noticed that every time he "comes inside his girlfriend" there is some burning pain. He is not having any ulcers or lesions on the penis. He has had gonorrhea in the past he says. He is not having any discharge. He questioned his girlfriend and she says that she has had herpes simplex virus #2 since a previous relationship but does not take any medicines for it. Allergies and Home Medications Allergies Coded Allergies: vancomycin (Verified Allergy, Mild, 02/26/18) Itching Home Medications Aspirin 325 Mg Tablet.dr, 650 MG PO DAILY, (Reported) Cephalexin 500 Mg Capsule, 500 MG PO QID Prescribed by: MEHRAN SEGURA on 03/16/191718 Sulfamethoxazole/Trimethoprim 1 Each Tablet, 1 EACH PO BID Prescribed by: MHERAN SEGURA on 03/16/191718 Patient Home Medication List Home Medication List Reviewed: Yes Review of Systems Review of Systems Constitutional: No chills EENTM: No ear discharge Respiratory: No cough, No short of breath Cardiovascular: No edema, No Hx of Intervention, No palpitations Gastrointestinal: No abdominal pain, No nausea, No vomiting Genitourinary: see HPI; denies discharge, denies dysuria All Other Systemes Reviewed Negative Unless Noted: Yes Past Epryxal-Qwryve-Rzeqth Hx Patient Social History Alcohol Use: Occasionally Uses Number of Drinks Today: CC Alcohol Beverage of Choice: Beer, Cheap Liquor Drug of Choice: Marijuana Type Used: Cigarettes 2nd Hand Smoke Exposure: No Recent Infectious Disease Expo: No Recent Hopitalizations: No Immunizations Up To Date Tetanus Booster (TDap): Less than 5yrs PED Vaccines UTD: Yes Seasonal Allergies Seasonal Allergies: Yes Past Medical History Surgeries: Yes Orthopedic Respiratory: No Currently Using CPAP: No Currently Using BIPAP: No Cardiac: No Neurological: No Reproductive Disorders: No Sexually Transmitted Disease: No HIV/AIDS: No Genitourinary: No Gastrointestinal: No Musculoskeletal: Yes (LEFT ELBOW FX; RIGHT HAND TENDON INJURY) Fractures Endocrine: No HEENT: Yes (BILATERAL JAW FX/WIRED 03/2018) Cancer: No Psychosocial: No Integumentary: Yes ("STAPH" INFECTIONS, PER PT) Recent Skin Changes Blood Disorders: No Family Medical History CAD Over 55 Years Old, Psychiatric Problems Physical Exam Vital Signs Vital Signs - First Documented 11/19/20 21:15 Temp 36.9 Pulse 94 Resp 18 B/P (MAP) 132/86 (101) O2 Delivery Room Air Capillary Refill : Less Than 3 Seconds Height, Weight, BMI Height: 5'9.00" Weight: 146lbs. 0.0oz. [id number]; 22.00 BMI Method:Stated General Appearance: WD/WN, no apparent distress HEENT: PERRL/EOMI, pharynx normal Cardiovascular: normal peripheral pulses, regular rate, rhythm Respiratory: no respiratory distress, no accessory muscle use Neurologic/Psychiatric: alert, normal mood/affect, oriented x 3 Progress/Results/Core Measures Suspected Sepsis Recent Fever Within 48 Hours: No Infection Criteria Present: Suspected New Infection New/Unexplained Altered Menta: No Sepsis Screen: No Definite Risk SIRS Temperature: Pulse: 94 Respiratory Rate: 18 Blood Pressure 132 /86 Mean: 101 Results/Orders Lab Results Laboratory Tests Test 11/19/20 21:40 Range/Units My Orders Orders - SRIDEVI KHAN Ua Culture If Indicated (11/19/20 21:35) Ceftriaxone For Im Use (Rocephin For Im (11/19/20 21:45) Azithromycin Tablet (Zithromax Tablet) (11/19/20 21:45) Lidocaine 1% Inj 20 Ml (Xylocaine 1% Inj (11/19/20 21:45) Vital Signs/I&O 11/19/20 21:15 Temp 36.9 Pulse 94 Resp 18 B/P (MAP) 132/86 (101) O2 Delivery Room Air Capillary Refill : Less Than 3 Seconds Blood Pressure Mean: 101 Progress Note : Time: 21:53 Progress Note Counseled him to use protection and if he develops any ulcers or lesions he should have them sampled either at his primary care provider or the health department. We will give him a dose of Rocephin and azithromycin and test him for gonorrhea and chlamydia. We encouraged him to have his partner tested and treated and he declined a partner treatment prescription at this time. Departure Impression Primary Impression: Sexually transmitted disease Disposition: HOME, SELF-CARE Condition: Stable Departure-Patient Inst. Decision time for Depature: 21:45 Referrals: [facility] (PCP/Family) Primary Care Physician Patient Instructions: Sexually-Transmitted Diseases (DC) Add. Discharge Instructions: We have treated you tonight for most of the common bacterial sexually transmitted infections. Test results should be back in about 2 to 3 business days and we will call you if any of the results are positive. I recommend you follow-up with a primary care doctor for further instructions. If you have any lesions or ulcers open up then you should immediately call the health department or your primary care provider to have them tested. All discharge instructions reviewed with patient and/or family. Voiced understanding. SRIDEVI KHAN November 19, 2020 21:57
== END 2020-11-19 22:18 | disposition home or self-care (01) ==
LOC: EDUNIT# 21:06 → ER 21:09
DX: A64 Unspecified sexually transmitted disease (principal); Z86.19 Personal history of other infectious and parasitic diseases
CPT/HCPCS: 81000; 99284